=== PATIENT | male | born 1955 | race Caucasian/White ===

== ENCOUNTER → 2016-11-08 | Outpatient (CLI) | payer OTHER ==
[2014-09-14 12:05] VITALS: BP 137/84
[~2016-11-08] MED LIST: CARV25TA2 PO; FURO80TA3 PO; LEVO200T PO; LISI10TA2 PO; TEST5POW3 MC; WARF2.5T71 PO
== END | disposition home or self-care (01) ==
LOC: PCVCIMAG 08:29
PROVIDERS: ATTEND Internal Medicine
DX: I25.5 Ischemic cardiomyopathy (principal); I48.91 Unspecified atrial fibrillation; I08.0 Rheumatic disorders of both mitral and aortic valves; Z95.0 Presence of cardiac pacemaker
CPT/HCPCS: 80061; 85610; 93005; 93306

== ENCOUNTER → 2018-09-23 | Outpatient (CLI) | payer OTHER ==
[2014-09-14 12:05] VITALS: BP 137/84
--- NOTE | 2018-09-23 11:00 | PCVCIMAG ---
APPROVED REPORT Study performed: 09/23/2018 10:17:23 EXAM: Comprehensive 2D, Doppler, and color-flow Echocardiogram Patient Location: Echo lab Status: routine BSA: 2.46 HR: 87 bpmBP: 90/70 mmHg Rhythm: Pacemaker Other Information Study Quality: Technically Difficult Risk Factors: Cardiac Risk Factors: HTN, Hyperlipidemia Indications Atrial Fibrillation Pacemaker Cardiomyopathy Hypertension/HDD 2D Dimensions IVSd: 31.86 (7-11mm)LVOT Diam: 29.19 (18-24mm) LVDd: 68.61 mm LVPWs: 33.72 mm PWd: 12.63 (7-11mm)Ascending Ao: 35.02 (22-36mm) LVDs: 58.53 (25-40mm) Left Atrium: 71.87 (27-40mm) Aortic Root: 34.61 mm LV Single Plane 4CH: 34.85 % LV Single Plane 2CH: 32.26 % Biplane EF: 34.8 % Volumes Left Atrial Volume (Systole) Single Plane 4CH: 178.52 mLSingle Plane 2CH: 150.39 mL LA ESV Index: 68.00 mL/m2 Aortic Valve AoV Peak Rony.: 1.09 m/s AO Peak Gr.: 6.59 mmHgLVOT Max P.13 mmHg LVOT Max V: 0.51 m/s DYLAN Vmax: 3.15 cm2 Mitral Valve E/A Ratio: 0.9 MV Decel. Time: 474.70 ms MV E Max Rony.: 0.52 m/s MV A Rony.: 0.57 m/s Pulmonary Valve PV Peak Gr.: 1.00 mmHg Left Ventricle Left ventricle is mildly dilated. There is global hypokinesis of the left ventricle. There is normal left ventricular wall thickness. Left ventricular systolic function is moderate to severely decreased. LVEF is 30-35%. This study is not technically sufficient to allow evaluation of the LV diastolic function due to atrial fibrillation. Right Ventricle The right ventricle is normal size. The right ventricular systolic function is normal. Atria Left atrium is severely dilated. Right atrium is severely dilated. A pacemaker is seen in the right atrium consistent with history. Aortic Valve The aortic valve is normal in structure, trileaflet No aortic regurgitation is present. There is no aortic valvular stenosis. Mitral Valve The mitral valve is normal in structure. Mild mitral regurgitation. No evidence of mitral valve stenosis. Tricuspid Valve The tricuspid valve is normal in structure. There is no tricuspid valve regurgitation noted. Pulmonic Valve The pulmonary valve is normal in structure. There is no pulmonic valvular regurgitation. Great Vessels The aortic root is normal in size. IVC is normal in size and collapses >50% with inspiration. Pericardium There is no pericardial effusion. <Conclusion> Left ventricular systolic function is moderate to severely decreased. There is global hypokinesis of the left ventricle. LVEF is 30-35%. Both atria are severely dilated. The aortic valve is normal in structure, trileaflet. No aortic regurgitation or stenosis. The mitral valve is normal in structure. Mild mitral regurgitation. Pulmonary artery pressure could not be reliably ascertained There is no pericardial effusion.
== END | disposition home or self-care (01) ==
LOC: PCVCIMAG 08:00
PROVIDERS: ATTEND Internal Medicine
DX: I34.0 Nonrheumatic mitral (valve) insufficiency (principal); I48.2 Chronic atrial fibrillation; I42.7 Cardiomyopathy due to drug and external agent; I50.22 Chronic systolic (congestive) heart failure
CPT/HCPCS: 93306

== ENCOUNTER → 2019-04-09 | Outpatient (CLI) | payer OTHER ==
[2014-09-14 12:05] VITALS: BP 137/84
== END | disposition home or self-care (01) ==
LOC: PCVCCLINIC 11:00
PROVIDERS: ATTEND Internal Medicine
DX: I11.0 Hypertensive heart disease with heart failure (principal); I50.22 Chronic systolic (congestive) heart failure; I42.7 Cardiomyopathy due to drug and external agent; I48.21 Permanent atrial fibrillation; R94.31 Abnormal electrocardiogram [ECG] [EKG]; E78.5 Hyperlipidemia, unspecified; Z95.0 Presence of cardiac pacemaker; Z90.49 Acquired absence of other specified parts of digestive tract; Z90.09 Acquired absence of other part of head and neck; Z87.891 Personal history of nicotine dependence; Z79.01 Long term (current) use of anticoagulants; Z79.899 Other long term (current) drug therapy; Z72.89 Other problems related to lifestyle; Z88.5 Allergy status to narcotic agent; Z88.8 Allergy status to other drugs, medicaments and biological substances
CPT/HCPCS: 36415; 80061; 85610; 93005; 93284; G0463

== ENCOUNTER 2021-09-09 12:23 | Inpatient (IN) | payer MEDICARE, OTHER ==
[~2021-09-09] VITALS: Ht 170.2 cm; Wt 123.2 kg
[~2021-09-09 12:23] MED LIST changes: +LISI10TA16 PO; -LISI10TA2 PO
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
[2021-09-09 12:55] LABS: BASO # 0.1 x10^3/uL (0.0-0.2); BASO % 1 % (0-3); EOS % 1 % (0-3); HEMATOCRIT 47.4 % (39.0-53.0); HEMOGLOBIN 15.3 g/dL (13.0-17.5); LYMPH # 1.3 x10^3/uL (1.0-4.8); LYMPH % 23 % (24-48); MEAN CORPUSCULAR HEMOGLOBIN 35 pg (25-35); MEAN CORPUSCULAR HGB CONC 32 g/dL (31-37); MEAN CORPUSCULAR VOLUME 107 fL (79-100); MONO # 0.6 x10^3/uL (0.0-1.1); MONO % 11 % (0-9); NEUT # 3.8 x10^3/uL (1.8-7.7); NEUT % 65 % (31-73); PLATELET COUNT 127 x10^3/uL (140-400); RED BLOOD COUNT 4.41 x10^6/uL (4.30-5.70); RED CELL DISTRIBUTION WIDTH 17.9 % (11.5-14.5); WHITE BLOOD COUNT 5.8 x10^3/uL (4.0-11.0)
[2021-09-09 13:08] LABS: PROTHROMBIN TIME PATIENT 18.8 SEC (11.7-14.0)
[2021-09-09 13:09] LABS: CALCIUM 10.6 mg/dL (8.5-10.1); GFR 33.6; POTASSIUM 3.4 mmol/L (3.5-5.1)
[2021-09-09 13:16] LABS: ALBUMIN 3.8 g/dL (3.4-5.0); ALBUMIN/GLOBULIN RATIO 1.1 (1.0-1.7); MAGNESIUM 2.4 mg/dL (1.8-2.4); PHOSPHORUS 3.8 mg/dL (2.6-4.7); TOTAL BILIRUBIN 4.5 mg/dL (0.2-1.0); TOTAL PROTEIN 7.2 g/dL (6.4-8.2)
--- NOTE | 2021-09-09 13:31 | RAD ---
CT HEAD/BRAIN WO Date: 09/09/2021 1:05 PM Clinical Indication: AMS, weakness Comparison: None. Technique: 5 mm axial tomographic images were obtained of the head without contrast. These were view ed on brain and bone windows. One or more of the following dose reduction techniques were utilized: A utomated exposure control (AEC), Adjustment of mA and/or kV according to patient size, Use of iterati ve reconstruction technique such as ASiR, CT scan done according to ALARA and image gently/image willis ly Findings: Mild generalized cerebral and cerebellar volume loss. Mild nonspecific periventricular hypoattenuatio n, most commonly seen with chronic small vessel ischemic disease. Calcified atherosclerosis of the bi lateral cavernous and paraclinoid internal carotid arteries and intracranial vertebral arteries. No intra- or extra-axial mass or fluid collection. No acute hemorrhage. The ventricles are normal in size, shape, and morphology. The cook-white matter junction is normal. The subarachnoid cisterns are patent. The visualized paranasal sinuses are normal. The visualized portions of the orbits and globes are no rmal. The mastoid air cells are clear. The senior electrical project manager topogram shows no lytic lesion or fracture. Impression: No acute intracranial process. Mild cerebral volume loss. Mild chronic small vessel ischemic disease. Electronically signed by: Jackson Peterson MD (09/09/2021 1:29 PM) [id number]
--- NOTE | 2021-09-09 14:09 | RAD ---
XR CHEST 1V INDICATION: dyspnea, hypoxia COMPARISON STUDY: 09/14/2014. FINDINGS: Right pectoral transvenous dual-chamber biventricular ICD/pacemaker. Lungs: Normal lung volume. No consolidation. Pleura: No pleural effusion or pneumothorax. Heart and Mediastinum: Cardiomegaly. The great vessels of the thorax are normal. IMPRESSION: No consolidation. Electronically signed by: Jackson Peterson MD (09/09/2021 2:07 PM) [id number]
[2021-09-09] MEDS ORDERED: IV NORMAL SALINE 500ML BAG 500 ML IV ONE (14:45)
--- NOTE | 2021-09-09 15:30 | RAD ---
Examination: CT chest abdomen pelvis without contrast HISTORY: History of dyspnea, abdominal pain, jaundice COMPARISON: None available Technique: Axial CT images of chest abdomen pelvis are performed without contrast.. Coronal and sagit joya reformats are performed. Exposure: One or more of the following individualized dose reduction techniques were utilized for thi s examination: 1. Automated exposure control 2. Adjustment of the mA and/or kV according to patient size 3. Use of iterative reconstruction technique FINDINGS: The central airways are patent. Mild cardiomegaly. Mild aortic atherosclerosis. Minimal bibasilar pinky g atelectasis. No radiologically significant mediastinal lymphadenopathy. The visualized noncontraste d liver, adrenals grossly appears unremarkable. The spleen is not identified. Mild distended gallblad faye. The [id number]-[id number] surrounding fat stranding about the gallbladder. The stomach is mildly dist ended. The visualized pancreas grossly appears unremarkable. The small bowel is nondilated. Feces and gas noted in the colon. Moderate inflammatory fat stranding identified about the urinary bladder along the bilateral ureters and bilateral kidneys. Multiple intrarenal collecting system calculi identified in the left kidney wi th largest measuring 9 mm left kidney. Multiple cystic structures identified in the bilateral kidneys with the largest measuring 4.3 cm in the right kidney. Moderate degenerative changes thoracic and shantell mbar spine. Mild compression changes of T12 vertebral body IMPRESSION: 1. Moderate inflammatory fat stranding identified about the urinary bladder along the bilateral uret ers and bilateral kidneys could be due to cystitis or urinary tract infection. Correlate with lab maxim ues. 2. Multiple intrarenal collecting system calculus identified in the left kidney with largest measuri ng 9 mm left kidney. 3. Multiple cystic structures identified in the bilateral kidneys with the largest measuring 4.3 cm in the right kidney. Follow-up nonemergent ultrasound kidneys can be considered. 4. Mild distended gallbladder with [id number] surrounding fat stranding. Acute cholecystitis i s not excluded. Recommend ultrasound right upper quadrant. 5. Mild compression changes of T12 vertebral body. Electronically signed by: Sloan Allen MD (09/09/2021 3:28 PM) [id number]
[2021-09-09 15:43] LABS: BASE EXCESS ABG -6 mmol/L (-3-3); HCO3 ABG 18 mmol/L (21-28); PCO2 ABG 31 mmHg (35-46); PO2 ABG 85 mmHg (65-108); SAT O2 ABG 95 % (92-99)
[2021-09-09 15:44] LABS: FIO2 ABG ROOM AIR
[2021-09-09] MEDS ORDERED: POTASSIUM CHLORIDE 10 MEQ TABLET.ER. PO ONE (15:45)
[2021-09-09] MEDS ORDERED: FUROSEMIDE 20 MG/2 ML VIAL. IVP ONE (15:45)
[2021-09-09] MEDS ORDERED: PIPERACILLIN/TAZOBACTAM 3.375 GM in IV NORMAL SALINE 50ML 50 ML IV ONE (16:00)
[2021-09-09 17:22] LABS: AMPHETAMINE/METHAMPHETAMINE NEG (NEG); BARBITURATES NEG (NEG); BENZODIAZEPINES NEG (NEG); CANNABINOIDS POS (NEG); COCAINE NEG (NEG); METHADONE NEG (NEG); OPIATES NEG (NEG); PHENCYCLIDINE NEG (NEG)
[2021-09-09 17:32] LABS: HYALINE CASTS, URINE FEW /HPF
[2021-09-09 17:33] LABS: BACTERIA,URINE 0 /HPF (0-FEW)
--- NOTE | 2021-09-09 18:06 | PDOC1 ---
History and Physical Date of Admission Date of Admission DATE: 09/09/21 TIME: 17:38 Identification/Chief Complaint Chief Complaint Generalized weakness, confusion Source Source: Caregiver, Patient History of Present Illness History of Present Illness Patient is a 66-year-old man with past medical history A. fib on warfarin, CHF, depression, gout, presents to the ED at the behest of his brother. Family's immediate concern is patient's generalized weakness and confusion over the past several days. Mother states that he is noncompliant with his diet, but has been compliant with his medications to his knowledge. Patient lives at home alone, but family comes to check on him frequently. As of late they have noticed him more confused, with statements like "who is blues dog is this". I tried to get an appointment with a doctor as outpatient, but due to lack of appointments family brought him to the ER instead. Labs on admission showed MCV 107, BUN 31, creatinine 2.0, CBG 122, AST 47, ALT 52, alkaline phosphatase 121. Urine toxicology was positive for cannabis. Urinalysis negative for any signs of infection. CT abdomen did demonstrate moderate inflammatory fat stranding identified about the urinary bladder along the bilateral ureters and bilateral kidneys could be due to cystitis or urinary tract infection, the patient is without urinary symptoms and with negative UA. CT abdomen also demonstrated multiple intrarenal collecting system calculus identified in the left kidney with largest measuring 9 mm left kidney, mild distended gallbladder with [id number] surrounding fat stranding. Acute cholecystitis was a concern per radiology, but patient denies any abdominal pain. The main focus seems to be weakness and confusion. Patient has been admitted for further medical management. Past Medical History Past Medical History A. fib, CHF, depression, gout Past Surgical History Past Surgical History Exploratory laparotomy Family History Family History Cirrhosis Social History Smoke: No ALCOHOL: occassional Drugs: Marijuana Current Problem List Problem List Problems Medical Problems: (1) Acute renal failure Status: Acute (2) Acute respiratory failure with hypoxia Status: Acute (3) Cholecystitis Status: Acute (4) Congestive heart failure Status: Acute (5) Hyperbilirubinemia Status: Acute (6) Jaundice Status: Acute (7) Lactic acidosis Status: Acute Current Medications Current Medications Current Medications Sodium Chloride 500 ml @ 500 mls/hr 1X ONCE IV Last administered on 09/09/21at 14:47; Start 09/09/21 at 14:45; Stop 09/09/21 at 15:44; Status DC Furosemide (Lasix) 20 mg 1X ONCE IVP Last administered on 09/09/21at 15:53; Start 09/09/21 at 15:45; Stop 09/09/21 at 15:46; Status DC Potassium Chloride (Klor-Con) 10 meq 1X ONCE PO Last administered on 09/09/21at 15:51; Start 09/09/21 at 15:45; Stop 09/09/21 at 15:46; Status DC Piperacillin Sod/ Tazobactam Sod 3.375 gm/Sodium Chloride 50 ml @ 100 mls/hr 1X ONCE IV Last administered on 09/09/21at 16:34; Start 09/09/21 at 16:00; Stop 09/09/21 at 16:29; Status DC Active Scripts Active Reported Testosterone 5 Gm Powder 5 Gm MC Furosemide 80 Mg Tablet 80 Mg PO DAILY Synthroid (Levothyroxine Sodium) 200 Mcg Tablet 200 Mcg PO DAILYAC Carvedilol 25 Mg Tablet 25 Mg PO BIDWMEALS Lisinopril 10 Mg Tablet 10 Mg PO DAILY Warfarin Sodium 2.5 Mg Tablet 2.5 Mg PO DAILY Allergies Allergies: Coded Allergies: No Known Drug Allergies (Unverified , 09/14/14) ROS Review of System GENERAL: Generalized weakness. Denies fevers SKIN: No bruising, hair changes or rashes. EYES: No blurred, double or loss of vision. NOSE AND THROAT: No history of nosebleeds, hoarseness or sore throat. HEART: Denies chest pain, denies palpitations. LUNGS: Denies cough, hemoptysis, wheezing or shortness of breath. GASTROINTESTINAL: Denies nausea, vomiting, abdominal pain. GENITOURINARY: Denies dysuria, frequency, urgency, hematuria. NEUROLOGIC: Confusion. Denies history of numbness, tingling, tremor or weakness. PSYCHIATRIC: Denies anxiety, denies depression. ENDOCRINE: No history of heat or cold intolerance, polyuria or polydipsia. EXTREMITIES: Bilateral lower extremity musculoskeletal weakness. Denies joint pain, pain on walking or stiffness. Physical Exam Physical Exam General: Alert, Oriented X2, Cooperative, No acute distress. Morbidly obese. HEENT: PERRLA, EOMI Lungs: Decreased breath sounds bilaterally, Normal air movement Heart: RRR, no murmurs Cardiovascular: S1, S2 Abdomen: Obese. Normal bowel sounds, Soft, No right upper quadrant tenderness or abdominal tenderness anywhere. Midline exploratory laparotomy scar. Extremities: 2+ edema. No clubbing, No cyanosis Skin: Jaundiced appearing skin. No rashes, No significant lesion Neuro: Normal speech, Normal tone, Sensation intact Psych/Mental Status: Mental status NL, Mood NL. Only slightly confused. Vitals Vitals Vital Signs Date Time Temp Pulse Resp B/P (MAP) Pulse Ox O2 Delivery O2 Flow Rate FiO2 09/09/21 17:01 78 38 151/119 (130) 09/09/21 12:25 97.3 88 Room Air 97.3 Labs Labs Laboratory Tests Test 09/09/21 12:40 09/09/21 12:42 09/09/21 16:05 09/09/21 16:50 White Blood Count 5.8 x10^3/uL (4.0-11.0) Red Blood Count 4.41 x10^6/uL (4.30-5.70) Hemoglobin 15.3 g/dL (13.0-17.5) Hematocrit 47.4 % (39.0-53.0) Mean Corpuscular Volume 107 fL (79-100) Mean Corpuscular Hemoglobin 35 pg (25-35) Mean Corpuscular Hemoglobin Concent 32 g/dL (31-37) Red Cell Distribution Width 17.9 % (11.5-14.5) Platelet Count 127 x10^3/uL (140-400) Neutrophils (%) (Auto) 65 % (31-73) Lymphocytes (%) (Auto) 23 % (24-48) Monocytes (%) (Auto) 11 % (0-9) Eosinophils (%) (Auto) 1 % (0-3) Basophils (%) (Auto) 1 % (0-3) Neutrophils # (Auto) 3.8 x10^3/uL (1.8-7.7) Lymphocytes # (Auto) 1.3 x10^3/uL (1.0-4.8) Monocytes # (Auto) 0.6 x10^3/uL (0.0-1.1) Eosinophils # (Auto) 0.0 x10^3/uL (0.0-0.7) Basophils # (Auto) 0.1 x10^3/uL (0.0-0.2) Prothrombin Time 18.8 SEC (11.7-14.0) Prothromb Time International Ratio 1.6 (0.8-1.1) Activated Partial Thromboplast Time 35 SEC (24-38) Sodium Level 143 mmol/L (136-145) Potassium Level 3.4 mmol/L (3.5-5.1) Chloride Level 103 mmol/L (98-107) Carbon Dioxide Level 26 mmol/L (21-32) Anion Gap 14 (6-14) Blood Urea Nitrogen 31 mg/dL (8-26) Creatinine 2.0 mg/dL (0.7-1.3) Estimated GFR (Cockcroft-Gault) 33.6 BUN/Creatinine Ratio 16 (6-20) Glucose Level 122 mg/dL (70-99) Lactic Acid Level 3.7 mmol/L (0.4-2.0) 2.8 mmol/L (0.4-2.0) Calcium Level 10.6 mg/dL (8.5-10.1) Phosphorus Level 3.8 mg/dL (2.6-4.7) Magnesium Level 2.4 mg/dL (1.8-2.4) Total Bilirubin 4.5 mg/dL (0.2-1.0) Aspartate Amino Transf (AST/SGOT) 47 U/L (15-37) Alanine Aminotransferase (ALT/SGPT) 52 U/L (16-63) Alkaline Phosphatase 121 U/L (46-116) Ammonia 20 mcmol/L (11-34) Creatine Kinase 147 U/L (39-308) Troponin I High Sensitivity 54 ng/L (4-75) BW-Xch-L-Type Natriuretic Peptide 9514 pg/mL (0-124) Total Protein 7.2 g/dL (6.4-8.2) Albumin 3.8 g/dL (3.4-5.0) Albumin/Globulin Ratio 1.1 (1.0-1.7) Lipase 29 U/L (73-393) Ethyl Alcohol Level < 10 mg/dL (0-10) O2 Saturation 95 % (92-99) Arterial Blood pH 7.38 (7.35-7.45) Arterial Blood pCO2 at Patient Temp 31 mmHg (35-46) Arterial Blood pO2 at Patient Temp 85 mmHg (65-108) Arterial Blood HCO3 18 mmol/L (21-28) Arterial Blood Base Excess -6 mmol/L (-3-3) FiO2 Room air Urine Collection Type Unknown Urine Color (Auto) Light yellow Urine Turbidity Clear Urine pH (Auto) 5.5 (<5.0-8.0) Urine Specific [place] 1.009 (1.000-1.030) Urine Protein (Auto) Negative mg/dL (Negative) Urine Glucose (Auto)(UA) Negative mg/dL (Negative) Urine Ketones (Auto) Negative mg/dL (Negative) Urine Blood (Auto) Negative (Negative) Urine Nitrite Negative (Negative) Urine Bilirubin (Auto) Negative (Negative) Urine Urobilinogen (Auto) Normal mg/dL (Normal) Urine Leukocyte Esterase (Auto) Negative (Negative) Urine RBC 1-2 /HPF (0-2) Urine WBC 1-4 /HPF (0-4) Urine Bacteria 0 /HPF (0-FEW) Urine Hyaline Casts Few /HPF Urine Mucus Marked /LPF Urine Opiates Screen Neg (NEG) Urine Methadone Screen Neg (NEG) Urine Barbiturates Neg (NEG) Urine Phencyclidine Screen Neg (NEG) Urine Amphetamine/Methamphetamine Neg (NEG) Urine Benzodiazepines Screen Neg (NEG) Urine Cocaine Screen Neg (NEG) Urine Cannabinoids Screen Pos (NEG) Urine Ethyl Alcohol Neg (NEG) Laboratory Tests Test 09/09/21 12:40 09/09/21 12:42 09/09/21 16:05 09/09/21 16:50 White Blood Count 5.8 x10^3/uL (4.0-11.0) Red Blood Count 4.41 x10^6/uL (4.30-5.70) Hemoglobin 15.3 g/dL (13.0-17.5) Hematocrit 47.4 % (39.0-53.0) Mean Corpuscular Volume 107 fL (79-100) Mean Corpuscular Hemoglobin 35 pg (25-35) Mean Corpuscular Hemoglobin Concent 32 g/dL (31-37) Red Cell Distribution Width 17.9 % (11.5-14.5) Platelet Count 127 x10^3/uL (140-400) Neutrophils (%) (Auto) 65 % (31-73) Lymphocytes (%) (Auto) 23 % (24-48) Monocytes (%) (Auto) 11 % (0-9) Eosinophils (%) (Auto) 1 % (0-3) Basophils (%) (Auto) 1 % (0-3) Neutrophils # (Auto) 3.8 x10^3/uL (1.8-7.7) Lymphocytes # (Auto) 1.3 x10^3/uL (1.0-4.8) Monocytes # (Auto) 0.6 x10^3/uL (0.0-1.1) Eosinophils # (Auto) 0.0 x10^3/uL (0.0-0.7) Basophils # (Auto) 0.1 x10^3/uL (0.0-0.2) Prothrombin Time 18.8 SEC (11.7-14.0) Prothromb Time International Ratio 1.6 (0.8-1.1) Activated Partial Thromboplast Time 35 SEC (24-38) Sodium Level 143 mmol/L (136-145) Potassium Level 3.4 mmol/L (3.5-5.1) Chloride Level 103 mmol/L (98-107) Carbon Dioxide Level 26 mmol/L (21-32) Anion Gap 14 (6-14) Blood Urea Nitrogen 31 mg/dL (8-26) Creatinine 2.0 mg/dL (0.7-1.3) Estimated GFR (Cockcroft-Gault) 33.6 BUN/Creatinine Ratio 16 (6-20) Glucose Level 122 mg/dL (70-99) Lactic Acid Level 3.7 mmol/L (0.4-2.0) 2.8 mmol/L (0.4-2.0) Calcium Level 10.6 mg/dL (8.5-10.1) Phosphorus Level 3.8 mg/dL (2.6-4.7) Magnesium Level 2.4 mg/dL (1.8-2.4) Total Bilirubin 4.5 mg/dL (0.2-1.0) Aspartate Amino Transf (AST/SGOT) 47 U/L (15-37) Alanine Aminotransferase (ALT/SGPT) 52 U/L (16-63) Alkaline Phosphatase 121 U/L (46-116) Ammonia 20 mcmol/L (11-34) Creatine Kinase 147 U/L (39-308) Troponin I High Sensitivity 54 ng/L (4-75) LK-Vsy-V-Type Natriuretic Peptide 9514 pg/mL (0-124) Total Protein 7.2 g/dL (6.4-8.2) Albumin 3.8 g/dL (3.4-5.0) Albumin/Globulin Ratio 1.1 (1.0-1.7) Lipase 29 U/L (73-393) Ethyl Alcohol Level < 10 mg/dL (0-10) O2 Saturation 95 % (92-99) Arterial Blood pH 7.38 (7.35-7.45) Arterial Blood pCO2 at Patient Temp 31 mmHg (35-46) Arterial Blood pO2 at Patient Temp 85 mmHg (65-108) Arterial Blood HCO3 18 mmol/L (21-28) Arterial Blood Base Excess -6 mmol/L (-3-3) FiO2 Room air Urine Collection Type Unknown Urine Color (Auto) Light yellow Urine Turbidity Clear Urine pH (Auto) 5.5 (<5.0-8.0) Urine Specific [place] 1.009 (1.000-1.030) Urine Protein (Auto) Negative mg/dL (Negative) Urine Glucose (Auto)(UA) Negative mg/dL (Negative) Urine Ketones (Auto) Negative mg/dL (Negative) Urine Blood (Auto) Negative (Negative) Urine Nitrite Negative (Negative) Urine Bilirubin (Auto) Negative (Negative) Urine Urobilinogen (Auto) Normal mg/dL (Normal) Urine Leukocyte Esterase (Auto) Negative (Negative) Urine RBC 1-2 /HPF (0-2) Urine WBC 1-4 /HPF (0-4) Urine Bacteria 0 /HPF (0-FEW) Urine Hyaline Casts Few /HPF Urine Mucus Marked /LPF Urine Opiates Screen Neg (NEG) Urine Methadone Screen Neg (NEG) Urine Barbiturates Neg (NEG) Urine Phencyclidine Screen Neg (NEG) Urine Amphetamine/Methamphetamine Neg (NEG) Urine Benzodiazepines Screen Neg (NEG) Urine Cocaine Screen Neg (NEG) Urine Cannabinoids Screen Pos (NEG) Urine Ethyl Alcohol Neg (NEG) Images Images PATIENT: TONIA BACA MACCOUNT: [id number] : 1955 LOCATION: ER AGE: 66 SEX: M EXAM STATUS: REG ER ORD. PHYSICIAN: CHICHI BURK DO REASON: dyspnea, abd pain, jaundice, hyperbilirubinemia PROCEDURE: CT CHEST ABDOMEN PELVIS WO Examination: CT chest abdomen pelvis without contrast HISTORY: History of dyspnea, abdominal pain, jaundice COMPARISON: None available Technique: Axial CT images of chest abdomen pelvis are performed without contrast.. Coronal and sagittal reformats are performed. Exposure: One or more of the following individualized dose reduction techniques were utilized for this examination: 1. Automated exposure control 2. Adjustment of the mA and/or kV according to patient size 3. Use of iterative reconstruction technique FINDINGS: The central airways are patent. Mild cardiomegaly. Mild aortic atherosclerosis. Minimal bibasilar lung atelectasis. No radiologically significant mediastinal lymphadenopathy. The visualized noncontrasted liver, adrenals grossly appears unremarkable. The spleen is not identified. Mild distended gallbladder. The ktev-kx-hhcewoqg surrounding fat stranding about the gallbladder. The stomach is mildly distended. The visualized pancreas grossly appears unremarkable. The small bowel is nondilated. Feces and gas noted in the colon. Moderate inflammatory fat stranding identified about the urinary bladder along the bilateral ureters and bilateral kidneys. Multiple intrarenal collecting system calculi identified in the left kidney with largest measuring 9 mm left kidney. Multiple cystic structures identified in the bilateral kidneys with the largest measuring 4.3 cm in the right kidney. Moderate degenerative changes thoracic and lumbar spine. Mild compression changes of T12 vertebral body IMPRESSION: 1. Moderate inflammatory fat stranding identified about the urinary bladder along the bilateral ureters and bilateral kidneys could be due to cystitis or urinary tract infection. Correlate with lab values. 2. Multiple intrarenal collecting system calculus identified in the left kidney with largest measuring 9 mm left kidney. 3. Multiple cystic structures identified in the bilateral kidneys with the largest measuring 4.3 cm in the right kidney. Follow-up nonemergent ultrasound kidneys can be considered. 4. Mild distended gallbladder with ewpo-dt-rumaryhl surrounding fat stranding. Acute cholecystitis is not excluded. Recommend ultrasound right upper quadrant. 5. Mild compression changes of T12 vertebral body. PATIENT: TONIA BACA MACCOUNT: [id number] : 1955 LOCATION: ER AGE: 66 SEX: M EXAM STATUS: REG ER ORD. PHYSICIAN: CHICHI BURK DO REASON: AMS, weakness PROCEDURE: CT HEAD WO CONTRAST CT HEAD/BRAIN WO Date: 09/09/2021 1:05 PM Clinical Indication: AMS, weakness Comparison: None. Technique: 5 mm axial tomographic images were obtained of the head without contrast. These were viewed on brain and bone windows. One or more of the following dose reduction techniques were utilized: Automated exposure control (AEC), Adjustment of mA and/or kV according to patient size, Use of iterative reconstruction technique such as ASiR, CT scan done according to ALARA and image gently/image wisely Findings: Mild generalized cerebral and cerebellar volume loss. Mild nonspecific periventricular hypoattenuation, most commonly seen with chronic small vessel i schemic disease. Calcified atherosclerosis of the bilateral cavernous and paraclinoid internal carotid arteries and intracranial vertebral arteries. No intra- or extra-axial mass or fluid collection. No acute hemorrhage. The ventricles are normal in size, shape, and morphology. The cook-white matter junction is normal. The subarachnoid cisterns are patent. The visualized paranasal sinuses are normal. The visualized portions of the orbits and globes are normal. The mastoid air cells are clear. The label tacker topogram shows no lytic lesion or fracture. Impression: No acute intracranial process. Mild cerebral volume loss. Mild chronic small vessel ischemic disease. PATIENT: TONIA BACA MACCOUNT: [id number] : 1955 LOCATION: ER AGE: 66 SEX: M EXAM STATUS: REG ER ORD. PHYSICIAN: CHICHI BURK DO REASON: dyspnea, hypoxia PROCEDURE: PORTABLE CHEST 1V XR CHEST 1V INDICATION: dyspnea, hypoxia COMPARISON STUDY: 09/14/2014. FINDINGS: Right pectoral transvenous dual-chamber biventricular ICD/pacemaker. Lungs: Normal lung volume. No consolidation. Pleura: No pleural effusion or pneumothorax. Heart and Mediastinum: Cardiomegaly. The great vessels of the thorax are normal. IMPRESSION: No consolidation. VTE Prophylaxis Ordered VTE Prophylaxis Devices: No VTE Pharmacological Prophylaxi: Yes Assessment/Plan Assessment/Plan Generalized weakness Acute confusion Failure to thrive [place] Plan: We will place consult to nephrology due to AMERICA Last ER visit on 09/14/2014 BUN 18 and creatinine 1.4. Patient's confusion may be secondary to his uremia. Will provide gentle hydration. We will obtain echocardiogram and consult cardiology due to his likely heart failure as etiology of weakness. Liver enzymes are not terribly elevated. Will monitor. No signs of infection in urine. Patient denies pain from kidney stones or any flank pain. If no improvement with conservative measures, will place consult to neurology. PT/OT Resume medications FEN - Cardiac diet PPX - warfarin FULL CODE/patient surrogate decision-maker is his brother (Gerald Baca) Dispo - inpatient for above Justifications for Admission Other Justification TOMASZ WING MD Sep 09, 2021 18:06
[2021-09-09] MEDS ORDERED: CALCIUM CARBONATE 500 MG TAB.CHEW PO PRN (18:30)
[2021-09-09] MEDS ORDERED: ZOLPIDEM 5 MG TABLET. PO PRN (18:30)
[2021-09-09] MEDS ORDERED: HYDROcodone/APAP 5/325MG 1 TAB TABLET PO PRN (18:30)
[2021-09-09] MEDS ORDERED: ACETAMINOPHEN 325 MG TABLET. PO PRN (18:30)
[2021-09-09] MEDS ORDERED: MAGNESIUM HYDROXIDE 2,400 MG/30 ML ORAL.SUSP. PO PRN (18:30)
[2021-09-09] MEDS ORDERED: MAG HYDROX/ALUMINUM HYD/SIMETH 30 ML ORAL.SUSP PO PRN (18:30)
[2021-09-09] MEDS ORDERED: ONDANSETRON PF 4 MG/2 ML VIAL. IVP PRN (18:30)
--- NOTE | 2021-09-09 18:37 | NUR ---
Pharmacy Warfarin Dosing Note S:Pharmacy consulted to assist with anticoagulation therapy started with target INR: 2 -3 O:TONIA CAMP is a 66 year old M with Atrial Fibrillation LABS: Last INR: 1.6 Last HGB: 15.3 Last HCT: 47.7 Last PLT: 127 Last dose of 2.5 mg given on at Previous Regimen: Vitamin K given: Drug Interaction Changes: Ongoing Drug Interactions: A:INR of 1.6 is below desired range. Target range for this patient is: 2 -3 P: Warfarin dose: 4 mg Now Bridge Therapy: Next INR due IN AM Pharmacy anticoagulation service will continue to follow. VIRGIL TAMAYO [facility], 09/09/21 [id number]
[2021-09-09] MEDS: CARVEDILOL 12.5 MG TABLET. PO SCH (18:48)
[2021-09-09] MEDS ORDERED: WARFARIN 4 MG TABLET. PO ONE (19:00)
[2021-09-09 19:47] VITALS: BP 102/88
--- NOTE | 2021-09-09 19:55 | NUR ---
Pt in bed assessment completed vss pt alert and oriented x2 pt forgetful pt denied pain at this time call light in reach will resume care and continue to monitor pt bed alarm set.
[2021-09-09 23:05] VITALS: BP 130/89
[2021-09-10 03:01] VITALS: BP 129/81
[2021-09-10 03:32] LABS: PROTHROMBIN TIME PATIENT 20.7 SEC (11.7-14.0)
[2021-09-10] MEDS ORDERED: LEVOTHYROXINE 100 MCG TABLET PO SCH (06:00)
[2021-09-10 07:00] VITALS: BP 121/79
[2021-09-10] MEDS: FUROSEMIDE 80 MG TABLET. PO SCH (08:41)
[2021-09-10] MEDS: CARVEDILOL 12.5 MG TABLET. PO SCH ×2 (08:42→16:57)
[2021-09-10] MEDS ORDERED: LISINOPRIL 10 MG TABLET PO SCH (09:00)
[2021-09-10] MEDS ORDERED: WARFARIN 2.5 MG TABLET. PO SCH (09:00)
--- NOTE | 2021-09-10 11:08 | PDOC2 ---
CONSULT Date of Consult Date of Consult DATE: 09/10/21 TIME: 11:07 Reason for Consult Reason for Consult: Congestive heart failure Referring Physician Referring Physician: Dr. Wyatt Identification/Chief Complaint Chief Complaint Shortness of breath Source Source: Chart review, Patient History of Present Illness Reason for Visit: 66-year-old male with history of nonischemic cardiomyopathy and chronic systolic heart failure s/p biventricular ICD implantation and atrial fibrillation on warfarin, usually followed by Dr. Salas at [facility] was brought by family for generalized weakness and confusion. Patient also complained of 2-week history of progressive shortness of breath. He denied any chest pain, palpitations or syncope. He admitted noncompliance with salt restrictions. According to family, he has not been taking his medications regularly as well. Past Medical History Past Medical History Hypertension Atrial fibrillation, most probably permanent Nonischemic cardiomyopathy Chronic systolic heart failure Depression Gout Past Surgical History Past Surgical History Biventricular ICD implantation 15 years ago with more recent generator change Exploratory laparotomy Social History No ALCOHOL: occassional Drugs: Marijuana Current Problem List Problem List Problems Medical Problems: (1) Acute renal failure Status: Acute (2) Acute respiratory failure with hypoxia Status: Acute (3) Cholecystitis Status: Acute (4) Congestive heart failure Status: Acute (5) Hyperbilirubinemia Status: Acute (6) Jaundice Status: Acute (7) Lactic acidosis Status: Acute Current Medications Current Medications Current Medications Sodium Chloride 500 ml @ 500 mls/hr 1X ONCE IV Last administered on 09/09/21at 14:47; Start 09/09/21 at 14:45; Stop 09/09/21 at 15:44; Status DC Furosemide (Lasix) 20 mg 1X ONCE IVP Last administered on 09/09/21at 15:53; Start 09/09/21 at 15:45; Stop 09/09/21 at 15:46; Status DC Potassium Chloride (Klor-Con) 10 meq 1X ONCE PO Last administered on 09/09/21at 15:51; Start 09/09/21 at 15:45; Stop 09/09/21 at 15:46; Status DC Piperacillin Sod/ Tazobactam Sod 3.375 gm/Sodium Chloride 50 ml @ 100 mls/hr 1X ONCE IV Last administered on 09/09/21at 16:34; Start 09/09/21 at 16:00; Stop 09/09/21 at 16:29; Status DC Furosemide (Lasix) 80 mg DAILY PO Last administered on 09/10/21at 08:41; Start 09/10/21 at 09:00 Lisinopril (Prinivil) 10 mg DAILY PO Last administered on 09/10/21at 08:41; Start 09/10/21 at 09:00 Warfarin Sodium (Coumadin) 2.5 mg DAILY PO ; Start 09/10/21 at 09:00; Stop 09/09/21 at 18:37; Status DC Carvedilol (Coreg) 25 mg BIDWMEALS PO Last administered on 09/10/21at 08:42; Start 09/09/21 at 19:00 Levothyroxine Sodium (Synthroid) 200 mcg DAILY06 PO Last administered on 09/10/21at 05:53; Start 09/10/21 at 06:00 Warfarin Sodium (Coumadin Per Pharmacy) 1 each PRN DAILY PRN MC SEE COMMENTS Last administered on 09/09/21at 18:38; Start 09/09/21 at 18:30 Ondansetron HCl (Zofran) 4 mg PRN Q6HRS PRN IVP NAUSEA/VOMITING; Start 09/09/21 at 18:30 Al Hydroxide/Mg Hydroxide (Mylanta Plus Xs) 30 ml PRN Q3HRS PRN PO HEARTBURN / GAS; Start 09/09/21 at 18:30 Calcium Carbonate/ Glycine (Tums) 500 mg PRN Q3HRS PRN PO UPSET STOMACH; Start 09/09/21 at 18:30 Zolpidem Tartrate (Ambien) 5 mg PRN QHS PRN PO INSOMNIA, MAY REPEAT IN 1HR; Start 09/09/21 at 18:30 Acetaminophen/ Hydrocodone Bitart (Lortab 5/325) 1 tab PRN Q4HRS PRN PO MILD PAIN 1-3; Start 09/09/21 at 18:30 Acetaminophen (Tylenol) 650 mg PRN Q6HRS PRN PO Headaches, Temp > 101.5F; Start 09/09/21 at 18:30 Magnesium Hydroxide (Milk Of Magnesia) 2,400 mg PRN Q12HR PRN PO CONSTIPATION; Start 09/09/21 at 18:30 Warfarin Sodium (Coumadin) 4 mg 1X WARF ONCE PO Last administered on 09/09/21at 18:49; Start 09/09/21 at 19:00; Stop 09/09/21 at 19:01; Status DC Active Scripts Active Reported Testosterone 5 Gm Powder 5 Gm MC Furosemide 80 Mg Tablet 80 Mg PO DAILY Synthroid (Levothyroxine Sodium) 200 Mcg Tablet 200 Mcg PO DAILYAC Carvedilol 25 Mg Tablet 25 Mg PO BIDWMEALS Lisinopril 10 Mg Tablet 10 Mg PO DAILY Warfarin Sodium 2.5 Mg Tablet 2.5 Mg PO DAILY Allergies Allergies: Coded Allergies: No Known Drug Allergies (Unverified , 09/14/14) ROS General: No: Fatigue PSYCHOLOGICAL ROS: YES: Disorientation, Memory difficulties Eyes: No Loss of vision HEENT: No: Epistaxis Respiratory: YES: Shortness of breath; No: Hemoptysis Cardiovascular: No Chest Pain, No Palpitations Genitourinary: No Hematuria Neurological: No Seizures Skin: No Rash Physical Exam General: Alert, No acute distress HEENT: Atraumatic Lungs: Other (Bilateral basal crepitations) Heart: No murmurs Abdomen: Soft Extremities: No edema Neuro: Normal speech Psych/Mental Status: Mood NL Vitals VITALS Vital Signs Date Time Temp Pulse Resp B/P (MAP) Pulse Ox O2 Delivery O2 Flow Rate FiO2 09/10/21 08:42 81 121/79 09/10/21 08:00 Nasal Cannula 4.0 09/10/21 07:00 97.4 20 98 97.4 Labs Labs Laboratory Tests Test 09/09/21 12:40 09/09/21 12:42 09/09/21 16:05 09/09/21 16:50 White Blood Count 5.8 x10^3/uL (4.0-11.0) Red Blood Count 4.41 x10^6/uL (4.30-5.70) Hemoglobin 15.3 g/dL (13.0-17.5) Hematocrit 47.4 % (39.0-53.0) Mean Corpuscular Volume 107 fL (79-100) Mean Corpuscular Hemoglobin 35 pg (25-35) Mean Corpuscular Hemoglobin Concent 32 g/dL (31-37) Red Cell Distribution Width 17.9 % (11.5-14.5) Platelet Count 127 x10^3/uL (140-400) Neutrophils (%) (Auto) 65 % (31-73) Lymphocytes (%) (Auto) 23 % (24-48) Monocytes (%) (Auto) 11 % (0-9) Eosinophils (%) (Auto) 1 % (0-3) Basophils (%) (Auto) 1 % (0-3) Neutrophils # (Auto) 3.8 x10^3/uL (1.8-7.7) Lymphocytes # (Auto) 1.3 x10^3/uL (1.0-4.8) Monocytes # (Auto) 0.6 x10^3/uL (0.0-1.1) Eosinophils # (Auto) 0.0 x10^3/uL (0.0-0.7) Basophils # (Auto) 0.1 x10^3/uL (0.0-0.2) Prothrombin Time 18.8 SEC (11.7-14.0) Prothromb Time International Ratio 1.6 (0.8-1.1) Activated Partial Thromboplast Time 35 SEC (24-38) Sodium Level 143 mmol/L (136-145) Potassium Level 3.4 mmol/L (3.5-5.1) Chloride Level 103 mmol/L (98-107) Carbon Dioxide Level 26 mmol/L (21-32) Anion Gap 14 (6-14) Blood Urea Nitrogen 31 mg/dL (8-26) Creatinine 2.0 mg/dL (0.7-1.3) Estimated GFR (Cockcroft-Gault) 33.6 BUN/Creatinine Ratio 16 (6-20) Glucose Level 122 mg/dL (70-99) Lactic Acid Level 3.7 mmol/L (0.4-2.0) 2.8 mmol/L (0.4-2.0) Calcium Level 10.6 mg/dL (8.5-10.1) Phosphorus Level 3.8 mg/dL (2.6-4.7) Magnesium Level 2.4 mg/dL (1.8-2.4) Total Bilirubin 4.5 mg/dL (0.2-1.0) Aspartate Amino Transf (AST/SGOT) 47 U/L (15-37) Alanine Aminotransferase (ALT/SGPT) 52 U/L (16-63) Alkaline Phosphatase 121 U/L (46-116) Ammonia 20 mcmol/L (11-34) Creatine Kinase 147 U/L (39-308) Troponin I High Sensitivity 54 ng/L (4-75) EQ-Khk-B-Type Natriuretic Peptide 9514 pg/mL (0-124) Total Protein 7.2 g/dL (6.4-8.2) Albumin 3.8 g/dL (3.4-5.0) Albumin/Globulin Ratio 1.1 (1.0-1.7) Lipase 29 U/L (73-393) Ethyl Alcohol Level < 10 mg/dL (0-10) O2 Saturation 95 % (92-99) Arterial Blood pH 7.38 (7.35-7.45) Arterial Blood pCO2 at Patient Temp 31 mmHg (35-46) Arterial Blood pO2 at Patient Temp 85 mmHg (65-108) Arterial Blood HCO3 18 mmol/L (21-28) Arterial Blood Base Excess -6 mmol/L (-3-3) FiO2 Room air Urine Collection Type Unknown Urine Color (Auto) Light yellow Urine Turbidity Clear Urine pH (Auto) 5.5 (<5.0-8.0) Urine Specific [place] 1.009 (1.000-1.030) Urine Protein (Auto) Negative mg/dL (Negative) Urine Glucose (Auto)(UA) Negative mg/dL (Negative) Urine Ketones (Auto) Negative mg/dL (Negative) Urine Blood (Auto) Negative (Negative) Urine Nitrite Negative (Negative) Urine Bilirubin (Auto) Negative (Negative) Urine Urobilinogen (Auto) Normal mg/dL (Normal) Urine Leukocyte Esterase (Auto) Negative (Negative) Urine RBC 1-2 /HPF (0-2) Urine WBC 1-4 /HPF (0-4) Urine Bacteria 0 /HPF (0-FEW) Urine Hyaline Casts Few /HPF Urine Mucus Marked /LPF Urine Opiates Screen Neg (NEG) Urine Methadone Screen Neg (NEG) Urine Barbiturates Neg (NEG) Urine Phencyclidine Screen Neg (NEG) Urine Amphetamine/Methamphetamine Neg (NEG) Urine Benzodiazepines Screen Neg (NEG) Urine Cocaine Screen Neg (NEG) Urine Cannabinoids Screen Pos (NEG) Urine Ethyl Alcohol Neg (NEG) Test 09/10/21 03:00 Prothrombin Time 20.7 SEC (11.7-14.0) Prothromb Time International Ratio 1.8 (0.8-1.1) Laboratory Tests Test 09/09/21 12:40 09/09/21 12:42 09/09/21 16:05 09/09/21 16:50 White Blood Count 5.8 x10^3/uL (4.0-11.0) Red Blood Count 4.41 x10^6/uL (4.30-5.70) Hemoglobin 15.3 g/dL (13.0-17.5) Hematocrit 47.4 % (39.0-53.0) Mean Corpuscular Volume 107 fL (79-100) Mean Corpuscular Hemoglobin 35 pg (25-35) Mean Corpuscular Hemoglobin Concent 32 g/dL (31-37) Red Cell Distribution Width 17.9 % (11.5-14.5) Platelet Count 127 x10^3/uL (140-400) Neutrophils (%) (Auto) 65 % (31-73) Lymphocytes (%) (Auto) 23 % (24-48) Monocytes (%) (Auto) 11 % (0-9) Eosinophils (%) (Auto) 1 % (0-3) Basophils (%) (Auto) 1 % (0-3) Neutrophils # (Auto) 3.8 x10^3/uL (1.8-7.7) Lymphocytes # (Auto) 1.3 x10^3/uL (1.0-4.8) Monocytes # (Auto) 0.6 x10^3/uL (0.0-1.1) Eosinophils # (Auto) 0.0 x10^3/uL (0.0-0.7) Basophils # (Auto) 0.1 x10^3/uL (0.0-0.2) Prothrombin Time 18.8 SEC (11.7-14.0) Prothromb Time International Ratio 1.6 (0.8-1.1) Activated Partial Thromboplast Time 35 SEC (24-38) Sodium Level 143 mmol/L (136-145) Potassium Level 3.4 mmol/L (3.5-5.1) Chloride Level 103 mmol/L (98-107) Carbon Dioxide Level 26 mmol/L (21-32) Anion Gap 14 (6-14) Blood Urea Nitrogen 31 mg/dL (8-26) Creatinine 2.0 mg/dL (0.7-1.3) Estimated GFR (Cockcroft-Gault) 33.6 BUN/Creatinine Ratio 16 (6-20) Glucose Level 122 mg/dL (70-99) Lactic Acid Level 3.7 mmol/L (0.4-2.0) 2.8 mmol/L (0.4-2.0) Calcium Level 10.6 mg/dL (8.5-10.1) Phosphorus Level 3.8 mg/dL (2.6-4.7) Magnesium Level 2.4 mg/dL (1.8-2.4) Total Bilirubin 4.5 mg/dL (0.2-1.0) Aspartate Amino Transf (AST/SGOT) 47 U/L (15-37) Alanine Aminotransferase (ALT/SGPT) 52 U/L (16-63) Alkaline Phosphatase 121 U/L (46-116) Ammonia 20 mcmol/L (11-34) Creatine Kinase 147 U/L (39-308) Troponin I High Sensitivity 54 ng/L (4-75) PE-Wzm-C-Type Natriuretic Peptide 9514 pg/mL (0-124) Total Protein 7.2 g/dL (6.4-8.2) Albumin 3.8 g/dL (3.4-5.0) Albumin/Globulin Ratio 1.1 (1.0-1.7) Lipase 29 U/L (73-393) Ethyl Alcohol Level < 10 mg/dL (0-10) O2 Saturation 95 % (92-99) Arterial Blood pH 7.38 (7.35-7.45) Arterial Blood pCO2 at Patient Temp 31 mmHg (35-46) Arterial Blood pO2 at Patient Temp 85 mmHg (65-108) Arterial Blood HCO3 18 mmol/L (21-28) Arterial Blood Base Excess -6 mmol/L (-3-3) FiO2 Room air Urine Collection Type Unknown Urine Color (Auto) Light yellow Urine Turbidity Clear Urine pH (Auto) 5.5 (<5.0-8.0) Urine Specific [place] 1.009 (1.000-1.030) Urine Protein (Auto) Negative mg/dL (Negative) Urine Glucose (Auto)(UA) Negative mg/dL (Negative) Urine Ketones (Auto) Negative mg/dL (Negative) Urine Blood (Auto) Negative (Negative) Urine Nitrite Negative (Negative) Urine Bilirubin (Auto) Negative (Negative) Urine Urobilinogen (Auto) Normal mg/dL (Normal) Urine Leukocyte Esterase (Auto) Negative (Negative) Urine RBC 1-2 /HPF (0-2) Urine WBC 1-4 /HPF (0-4) Urine Bacteria 0 /HPF (0-FEW) Urine Hyaline Casts Few /HPF Urine Mucus Marked /LPF Urine Opiates Screen Neg (NEG) Urine Methadone Screen Neg (NEG) Urine Barbiturates Neg (NEG) Urine Phencyclidine Screen Neg (NEG) Urine Amphetamine/Methamphetamine Neg (NEG) Urine Benzodiazepines Screen Neg (NEG) Urine Cocaine Screen Neg (NEG) Urine Cannabinoids Screen Pos (NEG) Urine Ethyl Alcohol Neg (NEG) Test 09/10/21 03:00 Prothrombin Time 20.7 SEC (11.7-14.0) Prothromb Time International Ratio 1.8 (0.8-1.1) Assessment/Plan Assessment/Plan 1. Mild acute on chronic systolic heart failure: Most likely secondary to noncompliance with medications and salt restrictions. He is presently better compensated after he received diuresis in ED. Last 2D echo at [facility] in 2018 showed EF 30 to 35%. We will obtain records from primary programming internship. 2. Nonischemic cardiomyopathy s/p biventricular ICD implantation 15 years ago and more recent generator change, clinically stable 3. Atrial fibrillation, most probably permanent, rate controlled. Telemetry showed paced rhythm. Continue warfarin for stroke prophylaxis. 4. Acute on chronic renal insufficiency: Consider nephrology consultation 5. Mental status changes most probably metabolic encephalopathy. Treat per IM. 6. Hypertension: Controlled 7. Hypothyroidism: Continue levothyroxine Thank you for your consultation MARK DAVIS MD Sep 10, 2021 11:08
--- NOTE | 2021-09-10 12:15 | PDOC ---
[employer] PROGRESS NOTE Date of Service DOS: DATE: 09/10/21 TIME: 12:05 Chief Complaint Chief Complaint Generalized weakness Acute encephalopathy - likely hepatic Failure to thrive [place] Thrombocytopenia Elevated bilirubin Painless jaundice chronic systolic heart failure s/p biventricular ICD implantation and atrial fibrillation Plan: We will place consult to nephrology due to [place] Last ER visit on 09/14/2014 BUN 18 and creatinine 1.4. Patient's confusion may be secondary to his uremia. Will provide gentle hydration. We will obtain echocardiogram and consult cardiology due to his likely heart failure as etiology of weakness. Liver enzymes are not terribly elevated. Will monitor. No signs of infection in urine. Patient denies pain from kidney stones or any flank pain. If no improvement with conservative measures, will place consult to neurology. PT/OT Resume medications FEN - Cardiac diet PPX - warfarin FULL CODE/patient surrogate decision-maker is his brother (Gerald Baca) Dispo - inpatient for above History of Present Illness History of Present Illness Patient is a 66-year-old man with past medical history A. fib on warfarin, CHF, depression, gout, presents to the ED at the behest of his brother. Family's immediate concern is patient's generalized weakness and confusion over the past several days. Mother states that he is noncompliant with his diet, but has been compliant with his medications to his knowledge. Patient lives at home alone, but family comes to check on him frequently. As of late they have noticed him more confused, with statements like "who is blues dog is this". I tried to get an appointment with a doctor as outpatient, but due to lack of appointments family brought him to the ER instead. Labs on admission showed MCV 107, BUN 31, creatinine 2.0, CBG 122, AST 47, ALT 52, alkaline phosphatase 121. Urine toxicology was positive for cannabis. Urinalysis negative for any signs of infection. CT abdomen did demonstrate moderate inflammatory fat stranding identified about the urinary bladder along the bilateral ureters and bilateral kidneys could be due to cystitis or urinary tract infection, the patient is without urinary symptoms and with negative UA. CT abdomen also demonstrated multiple intrarenal collecting system calculus identified in the left kidney with largest measuring 9 mm left kidney, mild distended gallbladder with [id number] surrounding fat stranding. Acute cholecystitis was a concern per radiology, but patient denies any abdominal pain. The main focus seems to be weakness and confusion. Patient has been admitted for further medical management. 09/10: Confused does not recognize his daughter granddaughter who is in the room currently. Bilirubin elevated CT by my interpretation does show gallbladder inflammation of multiple renal cysts no obstructive nephrolithiasis, ordered abdominal ultrasound and lactulose. Will consult GI. Awaiting echocardiogram. Cardiology following Vitals/I&O Vitals/I&O: Vital Signs Date Time Temp Pulse Resp B/P (MAP) Pulse Ox O2 Delivery O2 Flow Rate FiO2 09/10/21 08:42 81 121/79 09/10/21 08:00 Nasal Cannula 4.0 09/10/21 07:00 97.4 20 98 97.4 I & O 09/09/21 09/09/21 09/10/21 15:00 23:00 07:00 Intake Total 500 ml 120 ml Balance 500 ml 120 ml Physical Exam General: Alert, No acute distress Heart: No murmurs Abdomen: Soft Extremities: No edema Labs Labs: Laboratory Tests Test 09/09/21 12:40 09/09/21 12:42 09/09/21 16:05 09/09/21 16:50 White Blood Count 5.8 x10^3/uL (4.0-11.0) Red Blood Count 4.41 x10^6/uL (4.30-5.70) Hemoglobin 15.3 g/dL (13.0-17.5) Hematocrit 47.4 % (39.0-53.0) Mean Corpuscular Volume 107 fL (79-100) Mean Corpuscular Hemoglobin 35 pg (25-35) Mean Corpuscular Hemoglobin Concent 32 g/dL (31-37) Red Cell Distribution Width 17.9 % (11.5-14.5) Platelet Count 127 x10^3/uL (140-400) Neutrophils (%) (Auto) 65 % (31-73) Lymphocytes (%) (Auto) 23 % (24-48) Monocytes (%) (Auto) 11 % (0-9) Eosinophils (%) (Auto) 1 % (0-3) Basophils (%) (Auto) 1 % (0-3) Neutrophils # (Auto) 3.8 x10^3/uL (1.8-7.7) Lymphocytes # (Auto) 1.3 x10^3/uL (1.0-4.8) Monocytes # (Auto) 0.6 x10^3/uL (0.0-1.1) Eosinophils # (Auto) 0.0 x10^3/uL (0.0-0.7) Basophils # (Auto) 0.1 x10^3/uL (0.0-0.2) Prothrombin Time 18.8 SEC (11.7-14.0) Prothromb Time International Ratio 1.6 (0.8-1.1) Activated Partial Thromboplast Time 35 SEC (24-38) Sodium Level 143 mmol/L (136-145) Potassium Level 3.4 mmol/L (3.5-5.1) Chloride Level 103 mmol/L (98-107) Carbon Dioxide Level 26 mmol/L (21-32) Anion Gap 14 (6-14) Blood Urea Nitrogen 31 mg/dL (8-26) Creatinine 2.0 mg/dL (0.7-1.3) Estimated GFR (Cockcroft-Gault) 33.6 BUN/Creatinine Ratio 16 (6-20) Glucose Level 122 mg/dL (70-99) Lactic Acid Level 3.7 mmol/L (0.4-2.0) 2.8 mmol/L (0.4-2.0) Calcium Level 10.6 mg/dL (8.5-10.1) Phosphorus Level 3.8 mg/dL (2.6-4.7) Magnesium Level 2.4 mg/dL (1.8-2.4) Total Bilirubin 4.5 mg/dL (0.2-1.0) Aspartate Amino Transf (AST/SGOT) 47 U/L (15-37) Alanine Aminotransferase (ALT/SGPT) 52 U/L (16-63) Alkaline Phosphatase 121 U/L (46-116) Ammonia 20 mcmol/L (11-34) Creatine Kinase 147 U/L (39-308) Troponin I High Sensitivity 54 ng/L (4-75) BX-Api-W-Type Natriuretic Peptide 9514 pg/mL (0-124) Total Protein 7.2 g/dL (6.4-8.2) Albumin 3.8 g/dL (3.4-5.0) Albumin/Globulin Ratio 1.1 (1.0-1.7) Lipase 29 U/L (73-393) Ethyl Alcohol Level < 10 mg/dL (0-10) O2 Saturation 95 % (92-99) Arterial Blood pH 7.38 (7.35-7.45) Arterial Blood pCO2 at Patient Temp 31 mmHg (35-46) Arterial Blood pO2 at Patient Temp 85 mmHg (65-108) Arterial Blood HCO3 18 mmol/L (21-28) Arterial Blood Base Excess -6 mmol/L (-3-3) FiO2 Room air Urine Collection Type Unknown Urine Color (Auto) Light yellow Urine Turbidity Clear Urine pH (Auto) 5.5 (<5.0-8.0) Urine Specific [place] 1.009 (1.000-1.030) Urine Protein (Auto) Negative mg/dL (Negative) Urine Glucose (Auto)(UA) Negative mg/dL (Negative) Urine Ketones (Auto) Negative mg/dL (Negative) Urine Blood (Auto) Negative (Negative) Urine Nitrite Negative (Negative) Urine Bilirubin (Auto) Negative (Negative) Urine Urobilinogen (Auto) Normal mg/dL (Normal) Urine Leukocyte Esterase (Auto) Negative (Negative) Urine RBC 1-2 /HPF (0-2) Urine WBC 1-4 /HPF (0-4) Urine Bacteria 0 /HPF (0-FEW) Urine Hyaline Casts Few /HPF Urine Mucus Marked /LPF Urine Opiates Screen Neg (NEG) Urine Methadone Screen Neg (NEG) Urine Barbiturates Neg (NEG) Urine Phencyclidine Screen Neg (NEG) Urine Amphetamine/Methamphetamine Neg (NEG) Urine Benzodiazepines Screen Neg (NEG) Urine Cocaine Screen Neg (NEG) Urine Cannabinoids Screen Pos (NEG) Urine Ethyl Alcohol Neg (NEG) Test 09/10/21 03:00 Prothrombin Time 20.7 SEC (11.7-14.0) Prothromb Time International Ratio 1.8 (0.8-1.1) Assessment and Plan Assessmemt and Plan Problems Medical Problems: (1) Acute renal failure Status: Acute (2) Acute respiratory failure with hypoxia Status: Acute (3) Cholecystitis Status: Acute (4) Congestive heart failure Status: Acute (5) Hyperbilirubinemia Status: Acute (6) Jaundice Status: Acute (7) Lactic acidosis Status: Acute Comment Review of Relevant I have reviewed the following items eladia (where applicable) has been applied. Medications: Current Medications Medications (Trade) Dose Ordered Sig/Kal Route PRN Reason Start Time Stop Time Status Last Admin Dose Admin Sodium Chloride 500 ml @ 500 mls/hr 1X ONCE IV 09/09/21 14:45 09/09/21 15:44 DC 09/09/21 14:47 Furosemide (Lasix) 20 mg 1X ONCE IVP 09/09/21 15:45 09/09/21 15:46 DC 09/09/21 15:53 Potassium Chloride (Klor-Con) 10 meq 1X ONCE PO 09/09/21 15:45 09/09/21 15:46 DC 09/09/21 15:51 Piperacillin Sod/ Tazobactam Sod 3.375 gm/Sodium Chloride 50 ml @ 100 mls/hr 1X ONCE IV 09/09/21 16:00 09/09/21 16:29 DC 09/09/21 16:34 Furosemide (Lasix) 80 mg DAILY PO 09/10/21 09:00 09/10/21 08:41 Lisinopril (Prinivil) 10 mg DAILY PO 09/10/21 09:00 09/10/21 08:41 Carvedilol (Coreg) 25 mg BIDWMEALS PO 09/09/21 19:00 09/10/21 08:42 Levothyroxine Sodium (Synthroid) 200 mcg DAILY06 PO 09/10/21 06:00 09/10/21 05:53 Warfarin Sodium (Coumadin Per Pharmacy) 1 each PRN DAILY PRN MC SEE COMMENTS 09/09/21 18:30 09/09/21 18:38 Warfarin Sodium (Coumadin) 4 mg 1X WARF ONCE PO 09/09/21 19:00 09/09/21 19:01 DC 09/09/21 18:49 Justifications for Admission Other Justification GAB MARROQUIN MD Sep 10, 2021 12:15
[2021-09-10] MEDS: LACTULOSE 20 GM/30 ML SOLUTION. PO SCH ×2 (13:00→20:53)
--- NOTE | 2021-09-10 13:08 | NUR ---
Pharmacy Warfarin Dosing Note S: Pharmacy consulted to assist with anticoagulation therapy O: TONIA CAMP is a 66 year old M with a history of Atrial Fibrillation LABS: Last INR: 1.8 Last HGB: 15.3 Last HCT: 47.7 Last PLT: 127 Last dose of 2.5 mg given on at A:INR of 1.8 is below desired range of 2 - 3. After speaking with primary, will hold warfarin dose today until further evaulation of liver impairment is performed. P: HOLD warfarin dose today Next INR due 09/11/21 Pharmacy anticoagulation service will continue to follow. CHICHI JORDAN [facility], 09/10/21 [id number]
[2021-09-10 13:45] LABS: ALBUMIN 3.4 g/dL (3.4-5.0); ALBUMIN/GLOBULIN RATIO 1.1 (1.0-1.7); CALCIUM 9.8 mg/dL (8.5-10.1); CREATININE 1.9 mg/dL (0.7-1.3); GFR 35.6; POTASSIUM 3.4 mmol/L (3.5-5.1); TOTAL BILIRUBIN 4.7 mg/dL (0.2-1.0); TOTAL PROTEIN 6.4 g/dL (6.4-8.2)
[2021-09-10 15:00] VITALS: BP 114/79
[2021-09-10 19:19] VITALS: BP 118/82
[2021-09-10 22:53] VITALS: BP 131/85
[2021-09-11 03:00] VITALS: BP 107/68
[2021-09-11 04:54] LABS: PROTHROMBIN TIME PATIENT 20.7 SEC (11.7-14.0)
[2021-09-11] MEDS: LEVOTHYROXINE 112 MCG TABLET PO SCH (05:56)
[2021-09-11 07:00] VITALS: BP 121/77
--- NOTE | 2021-09-11 08:18 | PDOC ---
PROGRESS NOTES Date of Service: DATE: 09/11/21 TIME: 08:18 Subjective Subjective c/o dyspnea Objective Objective Vital Signs Date Time Temp Pulse Resp B/P (MAP) Pulse Ox O2 Delivery O2 Flow Rate FiO2 09/11/21 03:00 97.8 75 18 107/68 (81) 98 Nasal Cannula 4.0 97.8 Intake and Output 09/11/21 07:00 Intake Total 300 ml Output Total 650 ml Balance -350 ml Intake Oral 300 ml Output Urine Total 650 ml # Voids 4 Physical Exam Abdomen: Soft Heart: No murmurs Extremities: No edema General: Alert, No acute distress HEENT: Atraumatic Lungs: Other (Bilateral basal crepitations) Neuro: Normal speech Psych/Mental Status: Mood NL Assessment Assessment 1. Mild acute on chronic systolic heart failure: Most likely secondary to noncompliance with medications and salt restrictions. He is clinically better compensated. Last 2D echo at [facility] in 2019 showed EF 30 to 35%. We will obtain records from primary chief port director. Continue current medical regimen 2. Nonischemic cardiomyopathy s/p biventricular ICD implantation 15 years ago and more recent generator change, clinically stable 3. Atrial fibrillation, most probably permanent, rate controlled. Telemetry showed paced rhythm. Continue warfarin for stroke prophylaxis. 4. Acute on chronic renal insufficiency: Consider nephrology consultation 5. Mental status changes most probably metabolic encephalopathy. Treat per IM. 6. Hypertension: Controlled 7. Hypothyroidism: Continue levothyroxine Plan Plan of Care Problems Medical Problems: (1) Acute renal failure Status: Acute (2) Acute respiratory failure with hypoxia Status: Acute (3) Cholecystitis Status: Acute (4) Congestive heart failure Status: Acute (5) Hyperbilirubinemia Status: Acute (6) Jaundice Status: Acute (7) Lactic acidosis Status: Acute Comment Review of Relevant I have reviewed the following items eladia (where applicable) has been applied. Labs Laboratory Tests Test 09/10/21 12:15 09/11/21 04:30 Sodium Level 142 mmol/L (136-145) Potassium Level 3.4 mmol/L (3.5-5.1) Chloride Level 103 mmol/L (98-107) Carbon Dioxide Level 29 mmol/L (21-32) Anion Gap 10 (6-14) Blood Urea Nitrogen 30 mg/dL (8-26) Creatinine 1.9 mg/dL (0.7-1.3) Estimated GFR (Cockcroft-Gault) 35.6 BUN/Creatinine Ratio 16 (6-20) Glucose Level 93 mg/dL (70-99) Calcium Level 9.8 mg/dL (8.5-10.1) Total Bilirubin 4.7 mg/dL (0.2-1.0) Aspartate Amino Transf (AST/SGOT) 40 U/L (15-37) Alanine Aminotransferase (ALT/SGPT) 48 U/L (16-63) Alkaline Phosphatase 105 U/L (46-116) Total Protein 6.4 g/dL (6.4-8.2) Albumin 3.4 g/dL (3.4-5.0) Albumin/Globulin Ratio 1.1 (1.0-1.7) Prothrombin Time 20.7 SEC (11.7-14.0) Prothromb Time International Ratio 1.8 (0.8-1.1) Thyroid Stimulating Hormone (TSH) 31.338 uIU/mL (0.358-3.74) Microbiology 09/09/21 Blood Culture - Preliminary, Resulted NO GROWTH AFTER 1 DAY Medications Current Medications Furosemide (Lasix) 80 mg DAILY PO Last administered on 09/10/21at 08:41; Start 09/10/21 at 09:00 Lactulose (Lactulose) 20 gm BID PO Last administered on 09/10/21at 20:53; Start 09/10/21 at 13:00 Levothyroxine Sodium (Synthroid) 112 mcg DAILY06 PO Last administered on 09/11/21at 05:56; Start 09/11/21 at 06:00 Lisinopril (Prinivil) 10 mg DAILY PO Last administered on 09/10/21at 08:41; Start 09/10/21 at 09:00; Stop 09/10/21 at 12:58; Status DC Warfarin Sodium (Coumadin - No Dose Today) 1 each 1X WARF ONCE MC ; Start 09/10/21 at 16:00; Stop 09/10/21 at 16:01; Status DC Warfarin Sodium (Coumadin) 2.5 mg DAILY PO ; Start 09/10/21 at 09:00; Stop 09/09/21 at 18:37; Status DC Vitals/I & O Vital Sign - Last 24 Hours 09/10/21 09/10/21 09/10/21 09/10/21 08:41 08:42 15:00 16:57 Temp 97.2 97.2 Pulse 81 81 75 75 Resp 20 B/P (MAP) 121/79 121/79 114/79 (91) 114/79 Pulse Ox 98 O2 Delivery Nasal Cannula O2 Flow Rate 4.0 09/10/21 09/10/21 09/10/21 09/11/21 19:19 19:25 22:53 03:00 Temp 97.4 97.9 97.8 97.4 97.9 97.8 Pulse 70 75 75 Resp 18 18 B/P (MAP) 118/82 (94) 131/85 (100) 107/68 (81) Pulse Ox 97 96 98 O2 Delivery Nasal Cannula Nasal Cannula Nasal Cannula Nasal Cannula O2 Flow Rate 4.0 4.0 4.0 4.0 Intake and Output 09/10/21 09/10/21 09/11/21 15:00 23:00 07:00 Intake Total 240 ml 60 ml Output Total 200 ml 450 ml Balance 40 ml -390 ml MARK DAVIS MD Sep 11, 2021 08:18
[2021-09-11] MEDS: FUROSEMIDE 80 MG TABLET. PO SCH (09:47)
[2021-09-11] MEDS: LACTULOSE 20 GM/30 ML SOLUTION. PO SCH ×2 (09:48→21:37)
[2021-09-11] MEDS: CARVEDILOL 12.5 MG TABLET. PO SCH ×2 (09:48→16:00)
[2021-09-11 11:00] VITALS: BP 136/90
--- NOTE | 2021-09-11 11:42 | PDOC2 ---
CONSULT Date of Consult Date of Consult DATE: 09/11/21 TIME: 11:38 Reason for Consult Reason for Consult: Jaundice History of Present Illness Reason for Visit: 66 yo Male seen with jaundice. Patient has long standing cardiomyopathy with low EF. Recently noted to be jaundiced with out pain. Weight is stable despite poor appetite. No history of hepatitis is elicted. No risk factors for viral hepatiti s. CT scan is unrevealing for mass and/or obstruction. Past Medical History Cardiovascular: CHF, HTN ( ) Pulmonary: COPD Endocrine: Diabetes, Hypothyroidism Past Surgical History Past Surgical History: Pacemaker Family History Family History: No Significant Social History No ALCOHOL: occassional Drugs: Marijuana Current Problem List Problem List Problems Medical Problems: (1) Acute renal failure Status: Acute (2) Acute respiratory failure with hypoxia Status: Acute (3) Cholecystitis Status: Acute (4) Congestive heart failure Status: Acute (5) Hyperbilirubinemia Status: Acute (6) Jaundice Status: Acute (7) Lactic acidosis Status: Acute Current Medications Current Medications Current Medications Sodium Chloride 500 ml @ 500 mls/hr 1X ONCE IV Last administered on 09/09/21at 14:47; Start 09/09/21 at 14:45; Stop 09/09/21 at 15:44; Status DC Furosemide (Lasix) 20 mg 1X ONCE IVP Last administered on 09/09/21at 15:53; Start 09/09/21 at 15:45; Stop 09/09/21 at 15:46; Status DC Potassium Chloride (Klor-Con) 10 meq 1X ONCE PO Last administered on 09/09/21at 15:51; Start 09/09/21 at 15:45; Stop 09/09/21 at 15:46; Status DC Piperacillin Sod/ Tazobactam Sod 3.375 gm/Sodium Chloride 50 ml @ 100 mls/hr 1X ONCE IV Last administered on 09/09/21at 16:34; Start 09/09/21 at 16:00; Stop 09/09/21 at 16:29; Status DC Furosemide (Lasix) 80 mg DAILY PO Last administered on 09/11/21at 09:47; Start 09/10/21 at 09:00 Lisinopril (Prinivil) 10 mg DAILY PO Last administered on 09/10/21at 08:41; Start 09/10/21 at 09:00; Stop 09/10/21 at 12:58; Status DC Warfarin Sodium (Coumadin) 2.5 mg DAILY PO ; Start 09/10/21 at 09:00; Stop 09/09/21 at 18:37; Status DC Carvedilol (Coreg) 25 mg BIDWMEALS PO Last administered on 09/11/21at 09:48; Start 09/09/21 at 19:00 Levothyroxine Sodium (Synthroid) 200 mcg DAILY06 PO Last administered on 09/10/21at 05:53; Start 09/10/21 at 06:00; Stop 09/10/21 at 12:58; Status DC Warfarin Sodium (Coumadin Per Pharmacy) 1 each PRN DAILY PRN MC SEE COMMENTS Last administered on 09/10/21at 13:07; Start 09/09/21 at 18:30 Ondansetron HCl (Zofran) 4 mg PRN Q6HRS PRN IVP NAUSEA/VOMITING; Start 09/09/21 at 18:30 Al Hydroxide/Mg Hydroxide (Mylanta Plus Xs) 30 ml PRN Q3HRS PRN PO HEARTBURN / GAS; Start 09/09/21 at 18:30 Calcium Carbonate/ Glycine (Tums) 500 mg PRN Q3HRS PRN PO UPSET STOMACH; Start 09/09/21 at 18:30 Zolpidem Tartrate (Ambien) 5 mg PRN QHS PRN PO INSOMNIA, MAY REPEAT IN 1HR; Start 09/09/21 at 18:30 Acetaminophen/ Hydrocodone Bitart (Lortab 5/325) 1 tab PRN Q4HRS PRN PO MILD PAIN 1-3; Start 09/09/21 at 18:30 Acetaminophen (Tylenol) 650 mg PRN Q6HRS PRN PO Headaches, Temp > 101.5F; Start 09/09/21 at 18:30 Magnesium Hydroxide (Milk Of Magnesia) 2,400 mg PRN Q12HR PRN PO CONSTIPATION; Start 09/09/21 at 18:30 Warfarin Sodium (Coumadin) 4 mg 1X WARF ONCE PO Last administered on 09/09/21at 18:49; Start 09/09/21 at 19:00; Stop 09/09/21 at 19:01; Status DC Lactulose (Lactulose) 20 gm BID PO Last administered on 09/11/21at 09:48; Start 09/10/21 at 13:00 Levothyroxine Sodium (Synthroid) 112 mcg DAILY06 PO Last administered on 09/11/21at 05:56; Start 09/11/21 at 06:00 Warfarin Sodium (Coumadin - No Dose Today) 1 each 1X WARF ONCE MC ; Start 09/10/21 at 16:00; Stop 09/10/21 at 16:01; Status DC Active Scripts Active Reported Testosterone 5 Gm Powder 5 Gm MC Furosemide 80 Mg Tablet 80 Mg PO DAILY Synthroid (Levothyroxine Sodium) 200 Mcg Tablet 200 Mcg PO DAILYAC Carvedilol 25 Mg Tablet 25 Mg PO BIDWMEALS Lisinopril 10 Mg Tablet 10 Mg PO DAILY Warfarin Sodium 2.5 Mg Tablet 2.5 Mg PO DAILY Allergies Allergies: Coded Allergies: No Known Drug Allergies (Unverified , 09/14/14) Physical Exam Lungs: Clear to auscultation Heart: Normal S1, Normal S2 Abdomen: Normal bowel sounds, Soft Vitals VITALS Vital Signs Date Time Temp Pulse Resp B/P (MAP) Pulse Ox O2 Delivery O2 Flow Rate FiO2 09/11/21 09:48 77 121/77 09/11/21 08:00 Nasal Cannula 4.0 09/11/21 07:00 96.1 18 97 96.1 Labs Labs Laboratory Tests Test 09/09/21 12:40 09/09/21 12:42 09/09/21 16:05 09/09/21 16:50 White Blood Count 5.8 x10^3/uL (4.0-11.0) Red Blood Count 4.41 x10^6/uL (4.30-5.70) Hemoglobin 15.3 g/dL (13.0-17.5) Hematocrit 47.4 % (39.0-53.0) Mean Corpuscular Volume 107 fL (79-100) Mean Corpuscular Hemoglobin 35 pg (25-35) Mean Corpuscular Hemoglobin Concent 32 g/dL (31-37) Red Cell Distribution Width 17.9 % (11.5-14.5) Platelet Count 127 x10^3/uL (140-400) Neutrophils (%) (Auto) 65 % (31-73) Lymphocytes (%) (Auto) 23 % (24-48) Monocytes (%) (Auto) 11 % (0-9) Eosinophils (%) (Auto) 1 % (0-3) Basophils (%) (Auto) 1 % (0-3) Neutrophils # (Auto) 3.8 x10^3/uL (1.8-7.7) Lymphocytes # (Auto) 1.3 x10^3/uL (1.0-4.8) Monocytes # (Auto) 0.6 x10^3/uL (0.0-1.1) Eosinophils # (Auto) 0.0 x10^3/uL (0.0-0.7) Basophils # (Auto) 0.1 x10^3/uL (0.0-0.2) Prothrombin Time 18.8 SEC (11.7-14.0) Prothromb Time International Ratio 1.6 (0.8-1.1) Activated Partial Thromboplast Time 35 SEC (24-38) Sodium Level 143 mmol/L (136-145) Potassium Level 3.4 mmol/L (3.5-5.1) Chloride Level 103 mmol/L (98-107) Carbon Dioxide Level 26 mmol/L (21-32) Anion Gap 14 (6-14) Blood Urea Nitrogen 31 mg/dL (8-26) Creatinine 2.0 mg/dL (0.7-1.3) Estimated GFR (Cockcroft-Gault) 33.6 BUN/Creatinine Ratio 16 (6-20) Glucose Level 122 mg/dL (70-99) Lactic Acid Level 3.7 mmol/L (0.4-2.0) 2.8 mmol/L (0.4-2.0) Calcium Level 10.6 mg/dL (8.5-10.1) Phosphorus Level 3.8 mg/dL (2.6-4.7) Magnesium Level 2.4 mg/dL (1.8-2.4) Total Bilirubin 4.5 mg/dL (0.2-1.0) Aspartate Amino Transf (AST/SGOT) 47 U/L (15-37) Alanine Aminotransferase (ALT/SGPT) 52 U/L (16-63) Alkaline Phosphatase 121 U/L (46-116) Ammonia 20 mcmol/L (11-34) Creatine Kinase 147 U/L (39-308) Troponin I High Sensitivity 54 ng/L (4-75) TN-Agt-D-Type Natriuretic Peptide 9514 pg/mL (0-124) Total Protein 7.2 g/dL (6.4-8.2) Albumin 3.8 g/dL (3.4-5.0) Albumin/Globulin Ratio 1.1 (1.0-1.7) Lipase 29 U/L (73-393) Ethyl Alcohol Level < 10 mg/dL (0-10) O2 Saturation 95 % (92-99) Arterial Blood pH 7.38 (7.35-7.45) Arterial Blood pCO2 at Patient Temp 31 mmHg (35-46) Arterial Blood pO2 at Patient Temp 85 mmHg (65-108) Arterial Blood HCO3 18 mmol/L (21-28) Arterial Blood Base Excess -6 mmol/L (-3-3) FiO2 Room air Urine Collection Type Unknown Urine Color (Auto) Light yellow Urine Turbidity Clear Urine pH (Auto) 5.5 (<5.0-8.0) Urine Specific [place] 1.009 (1.000-1.030) Urine Protein (Auto) Negative mg/dL (Negative) Urine Glucose (Auto)(UA) Negative mg/dL (Negative) Urine Ketones (Auto) Negative mg/dL (Negative) Urine Blood (Auto) Negative (Negative) Urine Nitrite Negative (Negative) Urine Bilirubin (Auto) Negative (Negative) Urine Urobilinogen (Auto) Normal mg/dL (Normal) Urine Leukocyte Esterase (Auto) Negative (Negative) Urine RBC 1-2 /HPF (0-2) Urine WBC 1-4 /HPF (0-4) Urine Bacteria 0 /HPF (0-FEW) Urine Hyaline Casts Few /HPF Urine Mucus Marked /LPF Urine Opiates Screen Neg (NEG) Urine Methadone Screen Neg (NEG) Urine Barbiturates Neg (NEG) Urine Phencyclidine Screen Neg (NEG) Urine Amphetamine/Methamphetamine Neg (NEG) Urine Benzodiazepines Screen Neg (NEG) Urine Cocaine Screen Neg (NEG) Urine Cannabinoids Screen Pos (NEG) Urine Ethyl Alcohol Neg (NEG) Test 09/10/21 03:00 09/10/21 12:15 09/11/21 04:30 Prothrombin Time 20.7 SEC (11.7-14.0) 20.7 SEC (11.7-14.0) Prothromb Time International Ratio 1.8 (0.8-1.1) 1.8 (0.8-1.1) Sodium Level 142 mmol/L (136-145) Potassium Level 3.4 mmol/L (3.5-5.1) Chloride Level 103 mmol/L (98-107) Carbon Dioxide Level 29 mmol/L (21-32) Anion Gap 10 (6-14) Blood Urea Nitrogen 30 mg/dL (8-26) Creatinine 1.9 mg/dL (0.7-1.3) Estimated GFR (Cockcroft-Gault) 35.6 BUN/Creatinine Ratio 16 (6-20) Glucose Level 93 mg/dL (70-99) Calcium Level 9.8 mg/dL (8.5-10.1) Total Bilirubin 4.7 mg/dL (0.2-1.0) Aspartate Amino Transf (AST/SGOT) 40 U/L (15-37) Alanine Aminotransferase (ALT/SGPT) 48 U/L (16-63) Alkaline Phosphatase 105 U/L (46-116) Total Protein 6.4 g/dL (6.4-8.2) Albumin 3.4 g/dL (3.4-5.0) Albumin/Globulin Ratio 1.1 (1.0-1.7) Thyroid Stimulating Hormone (TSH) 31.338 uIU/mL (0.358-3.74) Laboratory Tests Test 09/10/21 12:15 09/11/21 04:30 Sodium Level 142 mmol/L (136-145) Potassium Level 3.4 mmol/L (3.5-5.1) Chloride Level 103 mmol/L (98-107) Carbon Dioxide Level 29 mmol/L (21-32) Anion Gap 10 (6-14) Blood Urea Nitrogen 30 mg/dL (8-26) Creatinine 1.9 mg/dL (0.7-1.3) Estimated GFR (Cockcroft-Gault) 35.6 BUN/Creatinine Ratio 16 (6-20) Glucose Level 93 mg/dL (70-99) Calcium Level 9.8 mg/dL (8.5-10.1) Total Bilirubin 4.7 mg/dL (0.2-1.0) Aspartate Amino Transf (AST/SGOT) 40 U/L (15-37) Alanine Aminotransferase (ALT/SGPT) 48 U/L (16-63) Alkaline Phosphatase 105 U/L (46-116) Total Protein 6.4 g/dL (6.4-8.2) Albumin 3.4 g/dL (3.4-5.0) Albumin/Globulin Ratio 1.1 (1.0-1.7) Prothrombin Time 20.7 SEC (11.7-14.0) Prothromb Time International Ratio 1.8 (0.8-1.1) Thyroid Stimulating Hormone (TSH) 31.338 uIU/mL (0.358-3.74) Assessment/Plan Assessment/Plan Juandice- with low EF, most likely secondary to congestion, medical therapy JASON SALAZAR MD Sep 11, 2021 11:42
--- NOTE | 2021-09-11 11:51 | RAD ---
STUDY: US Abdomen Complete INDICATION: Right upper quadrant pain. COMPARISON: CT from 09/09/2021 TECHNIQUE: Real-time grayscale and color Doppler sonographic evaluation of the abdomen. Findings: Limited assessment of the pancreas, spleen and aorta/IVC secondary to bowel gas. The liver measures 16.9 cm longitudinal. No focal parenchymal abnormality. Thick-walled gallbladder at 0.4 cm. The gallbladder lumen is not significantly dilated. There may be some layering sludge. Nondilated common duct at 0.4 cm. Bilateral renal cysts. Right renal cysts measuring 3.8 x 4.2 x 5.2 cm and 3.3 x 4.3 x 2.8 cm. Left re nal cysts measuring 3.7 x 3.5 x 3.5 cm and 3.2 x 2.7 x 2.7 cm. No hydronephrosis. Poorly visualized but patent IVC at the liver. Patent main portal vein with hepatopedal flow. Impression: 1. Thick-walled gallbladder measuring just over 0.4 cm. Possible gallbladder sludge. The gallbladder lumen is not significantly dilated but cholecystitis is still suspected given right upper quadrant p ain. As deemed clinically necessary a HIDA scan would allow for confirmation. 2. Nondilated common duct. No focal hepatic parenchymal abnormality. 3. Bilateral renal cysts without Doppler flow or mural nodularity. Surveillance could be considered in 6-12 months. 4. Limited evaluation of the pancreas, spleen and aorta/IVC secondary to bowel gas. Electronically signed by: ANTIONETTE CHIANG MD (09/11/2021 11:49 AM) [facility]
--- NOTE | 2021-09-11 11:57 | PDOC ---
[employer] PROGRESS NOTE Date of Service DOS: DATE: 09/11/21 TIME: 11:36 Chief Complaint Chief Complaint Generalized weakness Acute encephalopathy - likely hepatic Failure to thrive [place] Thrombocytopenia Elevated bilirubin Painless jaundice chronic systolic heart failure s/p biventricular ICD implantation and atrial fibrillation Plan: We will place consult to nephrology due to [place] Last ER visit on 09/14/2014 BUN 18 and creatinine 1.4. Patient's confusion may be secondary to his uremia. Will provide gentle hydration. We will obtain echocardiogram and consult cardiology due to his likely heart failure as etiology of weakness. Liver enzymes are not terribly elevated. Will monitor. No signs of infection in urine. Patient denies pain from kidney stones or any flank pain. If no improvement with conservative measures, will place consult to neurology. PT/OT Resume medications FEN - Cardiac diet PPX - warfarin FULL CODE/patient surrogate decision-maker is his brother (Gerald Baca) Dispo - inpatient for above History of Present Illness History of Present Illness Patient is a 66-year-old man with past medical history A. fib on warfarin, CHF, depression, gout, presents to the ED at the behest of his brother. Family's immediate concern is patient's generalized weakness and confusion over the past several days. Mother states that he is noncompliant with his diet, but has been compliant with his medications to his knowledge. Patient lives at home alone, but family comes to check on him frequently. As of late they have noticed him more confused, with statements like "who is blues dog is this". I tried to get an appointment with a doctor as outpatient, but due to lack of appointments family brought him to the ER instead. Labs on admission showed MCV 107, BUN 31, creatinine 2.0, CBG 122, AST 47, ALT 52, alkaline phosphatase 121. Urine toxicology was positive for cannabis. Urinalysis negative for any signs of infection. CT abdomen did demonstrate moderate inflammatory fat stranding identified about the urinary bladder along the bilateral ureters and bilateral kidneys could be due to cystitis or urinary tract infection, the patient is without urinary symptoms and with negative UA. CT abdomen also demonstrated multiple intrarenal collecting system calculus identified in the left kidney with largest measuring 9 mm left kidney, mild distended gallbladder with [id number] surrounding fat stranding. Acute cholecystitis was a concern per radiology, but patient denies any abdominal pain. The main focus seems to be weakness and confusion. Patient has been admitted for further medical management. 09/10: Confused does not recognize his daughter granddaughter who is in the room currently. Bilirubin elevated CT by my interpretation does show gallbladder inflammation of multiple renal cysts no obstructive nephrolithiasis, ordered abdominal ultrasound and lactulose. Will consult GI. Awaiting echocardiogram. Cardiology following 09/11: Still with bilirubin elevated bedside ultrasound observed. Family bedside worried about his swelling. Vitals/I&O Vitals/I&O: Vital Signs Date Time Temp Pulse Resp B/P (MAP) Pulse Ox O2 Delivery O2 Flow Rate FiO2 09/11/21 09:48 77 121/77 09/11/21 08:00 Nasal Cannula 4.0 09/11/21 07:00 96.1 18 97 96.1 I & O 09/10/21 09/10/21 09/11/21 15:00 23:00 07:00 Intake Total 240 ml 60 ml Output Total 200 ml 450 ml Balance 40 ml -390 ml Physical Exam General: Alert, No acute distress Heart: No murmurs Abdomen: Soft Extremities: No edema Labs Labs: Laboratory Tests Test 09/10/21 12:15 09/11/21 04:30 Sodium Level 142 mmol/L (136-145) Potassium Level 3.4 mmol/L (3.5-5.1) Chloride Level 103 mmol/L (98-107) Carbon Dioxide Level 29 mmol/L (21-32) Anion Gap 10 (6-14) Blood Urea Nitrogen 30 mg/dL (8-26) Creatinine 1.9 mg/dL (0.7-1.3) Estimated GFR (Cockcroft-Gault) 35.6 BUN/Creatinine Ratio 16 (6-20) Glucose Level 93 mg/dL (70-99) Calcium Level 9.8 mg/dL (8.5-10.1) Total Bilirubin 4.7 mg/dL (0.2-1.0) Aspartate Amino Transf (AST/SGOT) 40 U/L (15-37) Alanine Aminotransferase (ALT/SGPT) 48 U/L (16-63) Alkaline Phosphatase 105 U/L (46-116) Total Protein 6.4 g/dL (6.4-8.2) Albumin 3.4 g/dL (3.4-5.0) Albumin/Globulin Ratio 1.1 (1.0-1.7) Prothrombin Time 20.7 SEC (11.7-14.0) Prothromb Time International Ratio 1.8 (0.8-1.1) Thyroid Stimulating Hormone (TSH) 31.338 uIU/mL (0.358-3.74) Assessment and Plan Assessmemt and Plan Problems Medical Problems: (1) Acute renal failure Status: Acute (2) Acute respiratory failure with hypoxia Status: Acute (3) Cholecystitis Status: Acute (4) Congestive heart failure Status: Acute (5) Hyperbilirubinemia Status: Acute (6) Jaundice Status: Acute (7) Lactic acidosis Status: Acute Comment Review of Relevant I have reviewed the following items eladia (where applicable) has been applied. Medications: Current Medications Medications (Trade) Dose Ordered Sig/Kal Route PRN Reason Start Time Stop Time Status Last Admin Dose Admin Lactulose (Lactulose) 20 gm BID PO 09/10/21 13:00 09/11/21 09:48 Levothyroxine Sodium (Synthroid) 112 mcg DAILY06 PO 09/11/21 06:00 09/11/21 05:56 Justifications for Admission Other Justification GAB MARROQUIN MD Sep 11, 2021 11:57
[2021-09-11 15:00] VITALS: BP 114/80
[2021-09-11] MEDS ORDERED: WARFARIN 3 MG TABLET. PO ONE (16:00)
[2021-09-11 19:00] VITALS: BP 157/94
[2021-09-11 23:18] VITALS: BP 140/81
[2021-09-12 03:27] VITALS: BP 126/88
[2021-09-12] MEDS: LEVOTHYROXINE 112 MCG TABLET PO SCH (05:48)
[2021-09-12 07:00] VITALS: BP 110/73
[2021-09-12] MEDS ORDERED: PERFLUTREN PROTEIN-A MICROSPHR 0.22 MG/ML 3 ML VIAL. IV ONE (07:45)
[2021-09-12] MEDS: LACTULOSE 20 GM/30 ML SOLUTION. PO SCH ×2 (09:01→20:32)
[2021-09-12] MEDS: FUROSEMIDE 80 MG TABLET. PO SCH (09:02)
[2021-09-12] MEDS: CARVEDILOL 12.5 MG TABLET. PO SCH ×2 (09:02→16:48)
--- NOTE | 2021-09-12 09:52 | PDOC ---
Date of Service: DATE: 09/12/21 TIME: 09:44 Subjective: Subjective: No GI complaints - denies abdominal pain, eating breakfast "if you can call it that." Asks why we're just waiting around. Objective: Objective: INR 1.8 - h/o A Fib on Warfarin, h/o NICM. Ammonia 20 (WNL). Plt 127. MCV 107. TSH 31. +cannabinoids Getting lactulose, no stools charted. Vital Signs: Vital Signs Date Time Temp Pulse Resp B/P (MAP) Pulse Ox O2 Delivery O2 Flow Rate FiO2 09/12/21 09:02 85 110/73 09/12/21 07:00 97.9 24 97 Nasal Cannula 4.0 97.9 Labs: BLOOD CULTURE Preliminary NO GROWTH AFTER 2 DAYS Imaging: Abd US Impression: 1. Thick-walled gallbladder measuring just over 0.4 cm. Possible gallbladder sludge. The gallbladder lumen is not significantly dilated but cholecystitis is still suspected given right upper quadrant pain. As deemed clinically necessary a HIDA scan would allow for confirmation. 2. Nondilated common duct. No focal hepatic parenchymal abnormality. 3. Bilateral renal cysts without Doppler flow or mural nodularity. Surveillance could be considered in 6-12 months. 4. Limited evaluation of the pancreas, spleen and aorta/IVC secondary to bowel gas. C/A/P CT IMPRESSION: 1. Moderate inflammatory fat stranding identified about the urinary bladder along the bilateral ureters and bilateral kidneys could be due to cystitis or urinary tract infection. Correlate with lab values. 2. Multiple intrarenal collecting system calculus identified in the left kidney with largest measuring 9 mm left kidney. 3. Multiple cystic structures identified in the bilateral kidneys with the largest measuring 4.3 cm in the right kidney. Follow-up nonemergent ultrasound kidneys can be considered. 4. Mild distended gallbladder with [id number] surrounding fat stranding. Acute cholecystitis is not excluded. Recommend ultrasound right upper quadrant. 5. Mild compression changes of T12 vertebral body. PE: GEN: NAD LUNGS: CTAB HEART: RRR ABD: large, soft, non-tender NEURO/PSYCH: A & O, odd affect A/P: Hyperbilirubinemia - suspect 2/2 CHF Elevated TSH - impressive at 31 -- Observe from GI standpoint, follow labs. Justicifation of Admission Dx: Justifications for Admission: Justification of Admission Dx: Yes NAFISA-BRANINE,BETH PA Sep 12, 2021 09:52
[2021-09-12 11:00] VITALS: BP 95/60
[2021-09-12 11:42] LABS: DIRECT BILIRUBIN 1.7 mg/dL (0.0-0.2); TOTAL BILIRUBIN 3.2 mg/dL (0.2-1.0); TOTAL PROTEIN 6.1 g/dL (6.4-8.2)
--- NOTE | 2021-09-12 14:10 | PDOC ---
[employer] PROGRESS NOTE Date of Service DOS: DATE: 09/12/21 TIME: 14:07 Chief Complaint Chief Complaint Generalized weakness Acute encephalopathy - likely hepatic Failure to thrive AMERICA Thrombocytopenia Elevated bilirubin Painless jaundice chronic systolic heart failure s/p biventricular ICD implantation and atrial fibrillation Plan: We will place consult to nephrology due to AMERICA Last ER visit on 09/14/2014 BUN 18 and creatinine 1.4. Patient's confusion may be secondary to his uremia. Will provide gentle hydration. We will obtain echocardiogram and consult cardiology due to his likely heart failure as etiology of weakness. Liver enzymes are not terribly elevated. Will monitor. No signs of infection in urine. Patient denies pain from kidney stones or any flank pain. If no improvement with conservative measures, will place consult to neurology. PT/OT Resume medications FEN - Cardiac diet PPX - warfarin FULL CODE/patient surrogate decision-maker is his brother (Gerald Baca) Dispo - inpatient for above History of Present Illness History of Present Illness Patient is a 66-year-old man with past medical history A. fib on warfarin, CHF, depression, gout, presents to the ED at the behest of his brother. Family's immediate concern is patient's generalized weakness and confusion over the past several days. Mother states that he is noncompliant with his diet, but has been compliant with his medications to his knowledge. Patient lives at home alone, but family comes to check on him frequently. As of late they have noticed him more confused, with statements like "who is blues dog is this". I tried to get an appointment with a doctor as outpatient, but due to lack of appointments family brought him to the ER instead. Labs on admission showed MCV 107, BUN 31, creatinine 2.0, CBG 122, AST 47, ALT 52, alkaline phosphatase 121. Urine toxicology was positive for cannabis. Urinalysis negative for any signs of infection. CT abdomen did demonstrate moderate inflammatory fat stranding identified about the urinary bladder along the bilateral ureters and bilateral kidneys could be due to cystitis or urinary tract infection, the patient is without urinary symptoms and with negative UA. CT abdomen also demonstrated multiple intrarenal collecting system calculus identified in the left kidney with largest measuring 9 mm left kidney, mild distended gallbladder with [id number] surrounding fat stranding. Acute cholecystitis was a concern per radiology, but patient denies any abdominal pain. The main focus seems to be weakness and confusion. Patient has been admitted for further medical management. 09/10: Confused does not recognize his daughter granddaughter who is in the room currently. Bilirubin elevated CT by my interpretation does show gallbladder inflammation of multiple renal cysts no obstructive nephrolithiasis, ordered abdominal ultrasound and lactulose. Will consult GI. Awaiting echocardiogram. Cardiology following 09/11: Still with bilirubin elevated bedside ultrasound observed. Family bedside worried about his swelling. 4.4, no stool 4 days, add miralax, OOB to chair, walk hallway, reconsult PT, DC plan soon, Bilirubin much better, home dose of synthroid is 200, change, to 200mcg I have resent request for records to his chief relay tester, , family is there, had a lot of concern and multiple questions about prior information given, Mult med problems noted, CT scan full of chronc problmes. I discussed concern for alcohol use, MCV large, bili was up and now better, and AST up on admit, alcohol abuse best fits these, THC abuse not discussed he is probably not compliant with meds Vitals/I&O Vitals/I&O: Vital Signs Date Time Temp Pulse Resp B/P (MAP) Pulse Ox O2 Delivery O2 Flow Rate FiO2 09/12/21 11:00 98.1 69 20 95/60 (72) 95 Nasal Cannula 4.0 98.1 I & O 09/11/21 09/11/21 09/12/21 15:00 23:00 07:00 Intake Total 180 ml 360 ml 0 ml Output Total 450 ml 1800 ml Balance -270 ml -1440 ml 0 ml Physical Exam General: Alert, Oriented X3, Cooperative, No acute distress Heart: Normal S1, Normal S2 Abdomen: Normal bowel sounds, Soft Extremities: No edema Labs Labs: Laboratory Tests Test 09/12/21 11:15 Total Bilirubin 3.2 mg/dL (0.2-1.0) Direct Bilirubin 1.7 mg/dL (0.0-0.2) Aspartate Amino Transf (AST/SGOT) 41 U/L (15-37) Alanine Aminotransferase (ALT/SGPT) 44 U/L (16-63) Alkaline Phosphatase 94 U/L (46-116) Total Protein 6.1 g/dL (6.4-8.2) Albumin 3.0 g/dL (3.4-5.0) Vitamin B12 Level 1403 pg/mL (247-911) Assessment and Plan Assessmemt and Plan Problems Medical Problems: (1) Acute renal failure Status: Acute (2) Acute respiratory failure with hypoxia Status: Acute (3) Cholecystitis Status: Acute (4) Congestive heart failure Status: Acute (5) Hyperbilirubinemia Status: Acute (6) Jaundice Status: Acute (7) Lactic acidosis Status: Acute Comment Review of Relevant I have reviewed the following items eladia (where applicable) has been applied. Medications: Current Medications Medications (Trade) Dose Ordered Sig/Kal Route PRN Reason Start Time Stop Time Status Last Admin Dose Admin Warfarin Sodium (Coumadin) 3 mg 1X WARF ONCE PO 09/11/21 16:00 09/11/21 16:01 DC 09/11/21 16:00 Justifications for Admission Other Justification KULDEEP AGUILAR MD Sep 12, 2021 14:09
[2021-09-12] MEDS: POLYETHYLENE GLYCOL 3350 17 GM PACKET. PO SCH ×2 (14:45→21:00)
[2021-09-12] MEDS ORDERED: BISACODYL 10 MG SUPP.RECT. PR ONE (14:45)
[2021-09-12 15:00] VITALS: BP 108/79
[2021-09-12] MEDS ORDERED: WARFARIN 4 MG TABLET. PO ONE (16:00)
--- NOTE | 2021-09-12 16:38 | PDOC ---
PROGRESS NOTES Date of Service: DATE: 09/12/21 TIME: 16:36 Subjective Subjective No new complaints Objective Objective Vital Signs Date Time Temp Pulse Resp B/P (MAP) Pulse Ox O2 Delivery O2 Flow Rate FiO2 09/12/21 15:00 98.3 75 20 108/79 (89) 99 Room Air 98.3 09/12/21 11:00 4.0 Intake and Output 09/12/21 07:00 Intake Total 540 ml Output Total 2250 ml Balance -1710 ml Intake Oral 540 ml Output Urine Total 2250 ml # Voids 2 Physical Exam Abdomen: Normal bowel sounds, Soft Heart: Normal S1, Normal S2 Extremities: No edema General: Alert, Oriented X3, Cooperative, No acute distress HEENT: Atraumatic Lungs: Clear to auscultation Neuro: Normal speech Psych/Mental Status: Mood NL Assessment Assessment 1. Mild acute on chronic systolic heart failure: Most likely secondary to noncompliance with medications and salt restrictions. He is clinically better compensated. Last 2D echo at [facility] in 2019 showed EF 30 to 35%. Blood pressure on primary mail order clerk pending. Continue current medical regimen 2. Nonischemic cardiomyopathy s/p biventricular ICD implantation 15 years ago and more recent generator change, clinically stable 3. Atrial fibrillation, most probably permanent, rate controlled. Telemetry showed paced rhythm. Continue warfarin for stroke prophylaxis. 4. Acute on chronic renal insufficiency: Consider nephrology consultation 5. Mental status changes most probably metabolic encephalopathy. Treat per IM. 6. Hypertension: Controlled 7. Hypothyroidism: Continue levothyroxine 8. Hyperbilirubinemia: GI: Plan Plan of Care Problems Medical Problems: (1) Acute renal failure Status: Acute (2) Acute respiratory failure with hypoxia Status: Acute (3) Cholecystitis Status: Acute (4) Congestive heart failure Status: Acute (5) Hyperbilirubinemia Status: Acute (6) Jaundice Status: Acute (7) Lactic acidosis Status: Acute Comment Review of Relevant I have reviewed the following items eladia (where applicable) has been applied. Labs Laboratory Tests Test 09/12/21 11:15 09/12/21 13:50 Total Bilirubin 3.2 mg/dL (0.2-1.0) Direct Bilirubin 1.7 mg/dL (0.0-0.2) Aspartate Amino Transf (AST/SGOT) 41 U/L (15-37) Alanine Aminotransferase (ALT/SGPT) 44 U/L (16-63) Alkaline Phosphatase 94 U/L (46-116) Total Protein 6.1 g/dL (6.4-8.2) Albumin 3.0 g/dL (3.4-5.0) Vitamin B12 Level 1403 pg/mL (247-911) Prothrombin Time 19.0 SEC (11.7-14.0) Prothromb Time International Ratio 1.7 (0.8-1.1) Microbiology 09/09/21 Blood Culture - Preliminary, Resulted NO GROWTH AFTER 3 DAYS Medications Current Medications Bisacodyl (Dulcolax Supp) 10 mg 1X ONCE SD ; Start 09/12/21 at 14:45; Stop 09/12/21 at 14:46; Status DC Levothyroxine Sodium (Synthroid) 200 mcg DAILY06 PO ; Start 09/13/21 at 06:00 Perflutren Protein Type A Microsphe (Optison) 0.66 mg 1X ONCE IV ; Start 09/12/21 at 07:45; Stop 09/12/21 at 07:46; Status DC Polyethylene Glycol (miraLAX PACKET) 17 gm BID PO ; Start 09/12/21 at 14:45 Warfarin Sodium (Coumadin) 4 mg 1X WARF ONCE PO ; Start 09/12/21 at 16:00; Stop 09/12/21 at 16:01; Status DC Vitals/I & O Vital Sign - Last 24 Hours 09/11/21 09/11/21 09/11/21 09/12/21 19:00 20:00 23:18 03:27 Temp 98.7 97.6 98.4 98.7 97.6 98.4 Pulse 70 77 75 Resp 18 16 18 B/P (MAP) 157/94 (115) 140/81 (100) 126/88 (101) Pulse Ox 98 100 97 O2 Delivery Nasal Cannula Nasal Cannula Nasal Cannula Nasal Cannula O2 Flow Rate 4.0 4.0 4.0 4.0 09/12/21 09/12/21 09/12/21 09/12/21 07:00 08:00 09:02 11:00 Temp 97.9 98.1 97.9 98.1 Pulse 85 85 69 Resp 24 20 B/P (MAP) 110/73 (85) 110/73 95/60 (72) Pulse Ox 97 95 O2 Delivery Nasal Cannula Nasal Cannula Nasal Cannula O2 Flow Rate 4.0 4.0 4.0 09/12/21 15:00 Temp 98.3 98.3 Pulse 75 Resp 20 B/P (MAP) 108/79 (89) Pulse Ox 99 O2 Delivery Room Air Intake and Output 09/11/21 09/11/21 09/12/21 15:00 23:00 07:00 Intake Total 180 ml 360 ml 0 ml Output Total 450 ml 1800 ml Balance -270 ml -1440 ml 0 ml MARK DAVIS MD Sep 12, 2021 16:38
[2021-09-12 19:00] VITALS: BP 120/85
[2021-09-12 22:39] VITALS: BP 119/83
[2021-09-13 02:45] VITALS: BP 112/78
[2021-09-13] MEDS ORDERED: LEVOTHYROXINE 100 MCG TABLET PO SCH (06:00)
[2021-09-13 07:00] VITALS: BP 112/84
[2021-09-13 08:29] LABS: PROTHROMBIN TIME PATIENT 19.3 SEC (11.7-14.0)
[2021-09-13] MEDS: FUROSEMIDE 80 MG TABLET. PO SCH (08:45)
[2021-09-13] MEDS: POLYETHYLENE GLYCOL 3350 17 GM PACKET. PO SCH (08:46)
[2021-09-13] MEDS: LACTULOSE 20 GM/30 ML SOLUTION. PO SCH (08:46)
[2021-09-13] MEDS: CARVEDILOL 12.5 MG TABLET. PO SCH (08:46)
[2021-09-13] MEDS ORDERED: FOLIC/VIT B COMP W-C (RENAL) TABLET. PO SCH (09:00)
[2021-09-13 09:05] LABS: ALBUMIN/GLOBULIN RATIO 1.1 (1.0-1.7); CALCIUM 9.4 mg/dL (8.5-10.1); CREATININE 1.5 mg/dL (0.7-1.3); GFR 46.8; TOTAL BILIRUBIN 3.3 mg/dL (0.2-1.0); TOTAL PROTEIN 5.8 g/dL (6.4-8.2)
[2021-09-13 09:11] LABS: POTASSIUM 2.9 mmol/L (3.5-5.1)
--- NOTE | 2021-09-13 09:22 | NUR ---
Pharmacy Warfarin Dosing Note S:Pharmacy consulted to assist with anticoagulation therapy started with target INR: 2 -3 O:TONIA CAMP is a 66 year old M with Atrial Fibrillation LABS: Last INR: 1.7 Last HGB: 15.3 (09/09) Last HCT: 47.4 (09/09) Last PLT: 127 (09/09) Last dose of 4 mg given on 09/12/21 at 1647 Previous Regimen: 2.5MG DAILY AT HOME Vitamin K given: Not given this admission Drug Interaction Changes: Same Interacting Drug Ongoing Drug Interactions: Lactulose A:INR of 1.7 is below desired range. Target range for this patient is: 2 -3 P: Warfarin dose: 4 mg Today at 1600 Next INR due 09/14/21 Pharmacy anticoagulation service will continue to follow. JESSIE GAMBINO, [facility], 09/13/21 [id number]
[2021-09-13 09:24] LABS: HEMATOCRIT 45.6 % (39.0-53.0); HEMOGLOBIN 14.7 g/dL (13.0-17.5); RED BLOOD COUNT 4.23 x10^6/uL (4.30-5.70); WHITE BLOOD COUNT 4.8 x10^3/uL (4.0-11.0)
[2021-09-13] MEDS ORDERED: POTASSIUM CHLORIDE 20 MEQ TABLET.ER. PO ONE ×2 (09:30→13:30)
--- NOTE | 2021-09-13 09:50 | PDOC ---
Date of Service: DATE: 09/13/21 TIME: 09:47 Subjective: Subjective: Offers no complaints, wonders why he's still here. Objective: Objective: D/w nurse - large stool yesterday, forgetful. Vital Signs: Vital Signs Date Time Temp Pulse Resp B/P (MAP) Pulse Ox O2 Delivery O2 Flow Rate FiO2 09/13/21 08:46 82 115/84 09/13/21 08:00 Nasal Cannula 4.0 09/13/21 07:00 98.2 18 93 98.2 Labs: Laboratory Tests Test 09/12/21 11:15 09/12/21 13:50 09/13/21 07:45 Total Bilirubin 3.2 mg/dL 3.3 mg/dL Direct Bilirubin 1.7 mg/dL Aspartate Amino Transf (AST/SGOT) 41 U/L 42 U/L Alanine Aminotransferase (ALT/SGPT) 44 U/L 46 U/L Alkaline Phosphatase 94 U/L 95 U/L Total Protein 6.1 g/dL 5.8 g/dL Albumin 3.0 g/dL 3.0 g/dL Vitamin B12 Level 1403 pg/mL Prothrombin Time 19.0 SEC 19.3 SEC Prothromb Time International Ratio 1.7 1.7 White Blood Count 4.8 x10^3/uL Red Blood Count 4.23 x10^6/uL Hemoglobin 14.7 g/dL Hematocrit 45.6 % Mean Corpuscular Volume 108 fL Mean Corpuscular Hemoglobin 35 pg Mean Corpuscular Hemoglobin Concent 32 g/dL Red Cell Distribution Width 18.0 % Platelet Count 116 x10^3/uL Sodium Level 142 mmol/L Potassium Level 2.9 mmol/L Chloride Level 103 mmol/L Carbon Dioxide Level 33 mmol/L Anion Gap 6 Blood Urea Nitrogen 17 mg/dL Creatinine 1.5 mg/dL Estimated GFR (Cockcroft-Gault) 46.8 BUN/Creatinine Ratio 11 Glucose Level 78 mg/dL Calcium Level 9.4 mg/dL Gamma Glutamyl Transpeptidase 110 U/L Albumin/Globulin Ratio 1.1 PE: GEN: NAD LUNGS: CTAB HEART: RR ABD: NABS, S/ND/NT NEURO/PSYCH: A & O 3 A/P: Hyperbilirubinemia, AST ALT - fluctuating - no liver abnormality on CT or US - GGT elevated CHF, hypothyroidism, hypokalemia Anti-coagulated w/ Warfarin -- Monitoring labs for now. Justicifation of Admission Dx: Justifications for Admission: Justification of Admission Dx: Yes BETH DAVIES Sep 13, 2021 09:50
--- NOTE | 2021-09-13 10:14 | CARD ---
MR#: [id number] Date of Study: 09/12/2021 Ordering Physician: TOMASZ WING, Referring Physician: TOMASZ WING Tech: Sukhjinder Rowley [facility] APPROVED REPORT EXAM: Two-dimensional and M-mode echocardiogram with Doppler and color Doppler. Other Information Quality : LimitedHR: 76bpm Rhythm : NSRTechnically limited study due to body habitus and dementia INDICATION Hypertension/HCVD Echo Enhancing Agent Agent/Amount Used: Agitated Saline mL Surgery/Intervention ICD/Pacemaker: RISK FACTORS Hypertension Hyperlipidemia 2D DIMENSIONS Left Atrium(2D)7.1 (1.6-4.0cm)IVSd0.9 (0.7-1.1cm) Aortic Root(2D)3.6 (2.0-3.7cm)LVDd7.4 (3.9-5.9cm) LVOT Diameter2.3 (1.8-2.4cm)PWd0.8 (0.7-1.1cm) LA Epdqss009 (18-58mL)LVDs6.4 (2.5-4.0cm) FS (%) 13.0 %SV77.3 ml LVEF(%)26.9 (>50%) Aortic Valve AoV Peak Rony.75.8cm/sAoV VTI10.4cm AO Peak GR.2.3mmHgLVOT VTI 7.00cm AO Mean GR.2mmHg Mitral Valve MV E Klaoygbo60.9cm/sMV E Peak Gr.5mmHg MV DECEL [id number] A Xolbyfch23.9cm/s MV E Mean Gr.2mmHgE/A Ratio2.0 TDI Lateral E' P. V6.18cm/sMedial E' P. V5.21cm/s E/Lateral E'11.1E/Medial E'13.2 Pulmonary Valve PV Peak Oktzfdfz79.2cm/s Tricuspid Valve TR P. Rrndiggk857lt/sTR Peak Gr.27mmHg LEFT VENTRICLE The Left Ventricle is severely dilated. There is normal left ventricular wall thickness. Severe left ventricular systolic dysfunction. The ejection fraction is estimated at 20-25%. There is global hypok inesis of the left ventricle. No left ventricle thrombus noted on this study. There is no ventricular septal defect visualized. There is no left ventricular aneurysm. There is no mass noted in the left ventricle. RIGHT VENTRICLE The right ventricle is normal size. There is normal right ventricular wall thickness. The right ventr icular systolic function is mildly diminished. ATRIA The left atrium imoderately dilated. The right atrium is moderately dilated. The interatrial septum i s intact with no evidence for an atrial septal defect or patent foramen ovale as noted on 2-D or Dopp ler imaging. AORTIC VALVE The aortic valve is normal in structure and function. Doppler and Color Flow revealed no significant aortic regurgitation. There is no significant aortic valvular stenosis. There is no aortic valvular v egetation. MITRAL VALVE The mitral valve is thickened but opens well. There is no evidence of mitral valve prolapse. There is no mitral valve stenosis. Doppler and Color-flow revealed mild to moderate mitral regurgitation. TRICUSPID VALVE The tricuspid valve is normal in structure and function. Doppler and Color Flow revealed mild tricusp id regurgitation. There is no tricuspid valve prolapse or vegetation. There is no tricuspid valve kadeem nosis. PULMONIC VALVE The pulmonary valve is normal in structure and function. Doppler and Color Flow revealed no pulmonic valvular regurgitation. There is no pulmonic valvular stenosis. GREAT VESSELS The aortic root is normal in size. The ascending aorta is normal in size. The pulmonary artery is nor mal. The IVC is normal in size and collapses >50% with inspiration. PERICARDIAL EFFUSION There is no pleural effusion. There is no evidence of significant pericardial effusion. Critical Notification Critical Value: No <Conclusion> Severe left ventricular systolic dysfunction. The ejection fraction is estimated at 20-25%. Pacer/ICD lead noted RA/RV. Mild to moderate mitral regurgitation. Mild tricuspid regurgitation. There is no evidence of significant pericardial effusion. Signed by : Lewis Mora, Electronically Approved : 09/13/2021 10:13:48
[2021-09-13 11:00] VITALS: BP 105/84
--- NOTE | 2021-09-13 12:00 | PDOC ---
RAOUL BURGOS TOBACCO SHAKER 09/13/21 1159: CARDIO Progress Notes Date and Time Date of Service 09/13/21 Time of Evaluation 1200 Subjective Subjective: No Chest Pain, No shortness of breath, No Palpitations, No Dizziness Vitals Vitals Vital Signs Date Time Temp Pulse Resp B/P (MAP) Pulse Ox O2 Delivery O2 Flow Rate FiO2 09/13/21 08:46 82 115/84 09/13/21 08:00 Nasal Cannula 4.0 09/13/21 07:00 98.2 18 93 98.2 Weight Weight [ ] Input and Output Intake and Output Intake and Output 09/13/21 06:59 Intake Total 590 ml Output Total 2350 ml Balance -1760 ml Intake Oral 590 ml Output Urine Total 2350 ml Laboratory Labs Laboratory Tests Test 09/12/21 13:50 09/13/21 07:45 Prothrombin Time 19.0 SEC (11.7-14.0) 19.3 SEC (11.7-14.0) Prothromb Time International Ratio 1.7 (0.8-1.1) 1.7 (0.8-1.1) White Blood Count 4.8 x10^3/uL (4.0-11.0) Red Blood Count 4.23 x10^6/uL (4.30-5.70) Hemoglobin 14.7 g/dL (13.0-17.5) Hematocrit 45.6 % (39.0-53.0) Mean Corpuscular Volume 108 fL (79-100) Mean Corpuscular Hemoglobin 35 pg (25-35) Mean Corpuscular Hemoglobin Concent 32 g/dL (31-37) Red Cell Distribution Width 18.0 % (11.5-14.5) Platelet Count 116 x10^3/uL (140-400) Sodium Level 142 mmol/L (136-145) Potassium Level 2.9 mmol/L (3.5-5.1) Chloride Level 103 mmol/L (98-107) Carbon Dioxide Level 33 mmol/L (21-32) Anion Gap 6 (6-14) Blood Urea Nitrogen 17 mg/dL (8-26) Creatinine 1.5 mg/dL (0.7-1.3) Estimated GFR (Cockcroft-Gault) 46.8 BUN/Creatinine Ratio 11 (6-20) Glucose Level 78 mg/dL (70-99) Calcium Level 9.4 mg/dL (8.5-10.1) Total Bilirubin 3.3 mg/dL (0.2-1.0) Gamma Glutamyl Transpeptidase 110 U/L (10-85) Aspartate Amino Transf (AST/SGOT) 42 U/L (15-37) Alanine Aminotransferase (ALT/SGPT) 46 U/L (16-63) Alkaline Phosphatase 95 U/L (46-116) Total Protein 5.8 g/dL (6.4-8.2) Albumin 3.0 g/dL (3.4-5.0) Albumin/Globulin Ratio 1.1 (1.0-1.7) Microbiology Micro Microbiology 09/09/21 Blood Culture - Preliminary, Resulted NO GROWTH AFTER 3 DAYS Physical Exam HEENT: Neck Supple W Full Motion Chest: Symmetric LUNGS: Other (diminished bases) Heart: irregularly irregular (paced with underlying AFIB) Abdomen: Soft N/T Extremities: Other (trace pedal edema ) Neurology: alert, oriented, follow commands Assessment Assessment 1. Mild acute on chronic systolic heart failure: Most likely secondary to noncompliance with medications and salt restrictions. He is clinically better compensated. Echo 2019 showed EF 30 to 35%. Repeat echo with LVEF 20-25%. 2. Nonischemic cardiomyopathy s/p biventricular ICD implantation 15 years ago and more recent generator change, clinically stable 3. Atrial fibrillation, most probably permanent, rate controlled. Telemetry showed paced rhythm. 4. Acute on chronic renal insufficiency: improved 5. Mental status changes most probably metabolic encephalopathy. better 6. Hypertension: Controlled 7. Hypothyroidism: Continue levothyroxine 8. Hyperbilirubinemia: as per GI 9. Hypokalemia; replaced Recommendations Oral Lasix therapy Discussed 2Gm Na diet and 2000cc FR Also daily duy monitoring. Is to report if > 2-3# overnight or 5# gain in 1 week BB for rate control Warfarin for stroke prophylaxis Follow up with primary livestock farmers upon discharge. Justicifation of Admission Dx: Justifications for Admission: Justification of Admission Dx: Yes MARK DAVIS MD 09/13/21 6314: CARDIO Progress Notes Assessment Assessment Patient seen and examined. Agree with SOLID PROPELLANT PROCESSOR's assessment plan. Acute on chronic systolic heart failure better compensated AF rate controlled Continue current medical regimen follow-up with primary livestock farmers upon discharge RAOUL BURGOS APRN Sep 13, 2021 11:59 MARK DAVIS MD Sep 13, 2021 16:37
--- NOTE | 2021-09-13 12:13 | NUR ---
SS following for discharge planning. SS reviewed pt chart and discussed with pt RN. Pt is from home and is currently on room air. PT/OT ordered. PT recommended acute rehabilitation on 09/10/2021. SS met with pt and pt's family and discussed discharge planning and acute rehabilitation. Pt's family requesting that PT/OT evaluate pt today. Pt and family preference would be to return to home with possible outpatient services. Pt's RN notified. SS will continue to follow for discharge planning.
[2021-09-13] MEDS ORDERED: FOLI0.8T21 PO (14:02)
[2021-09-13] MEDS ORDERED: SPIR50TA PO (14:05)
--- NOTE | 2021-09-13 14:16 | SNU/HH DC ---
DISCHARGE WITH HOME HEALTH DISCHARGE INFORMATION: Discharge Date: Sep 13, 2021 Final Diagnosis: Generalized weakness Acute encephalopathy - likely hepatic Failure to thrive [place] Thrombocytopenia Elevated bilirubin Painless jaundice chronic systolic heart failure s/p biventricular ICD implantation and atrial fibrillation Problems Medical Problems: (1) Acute renal failure Status: Acute (2) Acute respiratory failure with hypoxia Status: Acute (3) Cholecystitis Status: Acute (4) Congestive heart failure Status: Acute (5) Hyperbilirubinemia Status: Acute (6) Jaundice Status: Acute (7) Lactic acidosis Status: Acute Condition on Discharge: Stable HOME HEALTH: Face to Face: I certify this patient is under my care and that I had a face to face encounter that meets the physician face to face encounter requirements with this patient on 09/13/21 Medical Complications: CHF RN For Eval/Treatment: Yes Physical Therapy For: Evalulation/Treatment Occupational Therapy For: Evaluation/Treatment Pt Meets Homebound Status: Unsteady balance w/ amb,, Unable to negotiate home POST DISCHARGE ORDERS: Activity Instructions for Disc: No restrictions, Activity as tolerated Weight Bearing Status after Di: No restrictions, As tolerated DIET AFTER DISCHARGE: Cardiac FOLLOW-UP: Follow up with: cardiology Additional Instructions: cbc, chem 7, mag in one week TREATMENT/EQUIPMENT ORDERS: Adaptive Equipment Issued: Front wheeled walker CERTIFICATION STATEMENT: Certification Statement: Certification Statement: Based on the above finding, I certify that this patient is confined to the home and needs intermittent fdc care, physical therapy and/or speech therapy, or continues to need occupational therapy.~ This patient is under my care, and I have initiated the establishment of the plan of care.~ This patient will be followed by myself or a community physician who will periodically review the plan of care. Home Meds Active Scripts Spironolactone (ALDACTONE) 50 Mg Tablet, 1 TAB PO DAILY for CHF, #30 TAB Prov:KULDEEP AGUILAR MD 09/13/21 Folic Acid/Vitamin B Comp W-C (LOWELL-ALEXANDER TABLET) 0.8 Mg Tablet, 1 TAB PO DAILY for vitamin deficiency, #100 TAB Prov:KULDEEP AGUILAR MD 09/13/21 Reported Medications Testosterone (TESTOSTERONE) 5 Gm Powder, 5 GM MC 09/14/14 Furosemide (FUROSEMIDE) 80 Mg Tablet, 80 MG PO DAILY, TAB 09/14/14 Levothyroxine Sodium (SYNTHROID) 200 Mcg Tablet, 200 MCG PO DAILYAC for THYROID SUPPLEMENT, #30 TAB 0 Refills 09/14/14 Carvedilol (CARVEDILOL) 25 Mg Tablet, 25 MG PO BIDWMEALS, TAB 09/14/14 Lisinopril (LISINOPRIL) 10 Mg Tablet, 10 MG PO DAILY for FOR HYPERTENSION, #30 TAB 0 Refills 09/14/14 Warfarin Sodium (WARFARIN SODIUM) 2.5 Mg Tablet, 2.5 MG PO DAILY, TAB 09/14/14 KULDEEP AGUILAR MD Sep 13, 2021 14:16
--- NOTE | 2021-09-13 14:25 | PDOC3 ---
Discharge Summary Visit Information Date of Admission: Sep 09, 2021 Date of Discharge: Sep 13, 2021 Final Diagnosis Generalized weakness Acute metabolic encephalopathy Failure to thrive [place], vbetter with lasix, hypokalemia Thrombocytopenia macrocytosis, prob EtOH abuse, THC use disorder Elevated bilirubin Painless jaundice chronic systolic heart failure s/p biventricular ICD implantation and atrial fibrillation 4.4, no stool 4 days, add miralax, OOB to chair, walk hallway, reconsult PT, DC plan soon, Bilirubin much better, home dose of synthroid is 200, change, to 200mcg I have resent request for records to his benefits analyst, , family is there, had a lot of concern and multiple questions about prior information given, Mult med problems noted, CT scan full of chronc problmes. I discussed concern for alcohol use, MCV large, bili was up and now better, and AST up on admit, alcohol abuse best fits these, THC abuse not discussed he is probably not compliant with meds Problems Medical Problems: (1) Acute renal failure Status: Acute (2) Acute respiratory failure with hypoxia Status: Acute (3) Cholecystitis Status: Acute (4) Congestive heart failure Status: Acute (5) Hyperbilirubinemia Status: Acute (6) Jaundice Status: Acute (7) Lactic acidosis Status: Acute Brief Hospital Course Allergies Allergies Coded Allergies Type Severity Reaction Last Updated Verified No Known Drug Allergies 09/14/14 No Vital Signs Vital Signs Date Time Temp Pulse Resp B/P (MAP) Pulse Ox O2 Delivery O2 Flow Rate FiO2 09/13/21 11:00 97.9 78 18 105/84 (91) 97 Room Air 97.9 09/13/21 08:00 4.0 Lab Results Laboratory Tests Test 09/12/21 11:15 09/12/21 13:50 09/13/21 07:45 Total Bilirubin 3.2 mg/dL (0.2-1.0) 3.3 mg/dL (0.2-1.0) Direct Bilirubin 1.7 mg/dL (0.0-0.2) Aspartate Amino Transf (AST/SGOT) 41 U/L (15-37) 42 U/L (15-37) Alanine Aminotransferase (ALT/SGPT) 44 U/L (16-63) 46 U/L (16-63) Alkaline Phosphatase 94 U/L (46-116) 95 U/L (46-116) Total Protein 6.1 g/dL (6.4-8.2) 5.8 g/dL (6.4-8.2) Albumin 3.0 g/dL (3.4-5.0) 3.0 g/dL (3.4-5.0) Vitamin B12 Level 1403 pg/mL (247-911) Prothrombin Time 19.0 SEC (11.7-14.0) 19.3 SEC (11.7-14.0) Prothromb Time International Ratio 1.7 (0.8-1.1) 1.7 (0.8-1.1) White Blood Count 4.8 x10^3/uL (4.0-11.0) Red Blood Count 4.23 x10^6/uL (4.30-5.70) Hemoglobin 14.7 g/dL (13.0-17.5) Hematocrit 45.6 % (39.0-53.0) Mean Corpuscular Volume 108 fL (79-100) Mean Corpuscular Hemoglobin 35 pg (25-35) Mean Corpuscular Hemoglobin Concent 32 g/dL (31-37) Red Cell Distribution Width 18.0 % (11.5-14.5) Platelet Count 116 x10^3/uL (140-400) Sodium Level 142 mmol/L (136-145) Potassium Level 2.9 mmol/L (3.5-5.1) Chloride Level 103 mmol/L (98-107) Carbon Dioxide Level 33 mmol/L (21-32) Anion Gap 6 (6-14) Blood Urea Nitrogen 17 mg/dL (8-26) Creatinine 1.5 mg/dL (0.7-1.3) Estimated GFR (Cockcroft-Gault) 46.8 BUN/Creatinine Ratio 11 (6-20) Glucose Level 78 mg/dL (70-99) Calcium Level 9.4 mg/dL (8.5-10.1) Magnesium Level 2.1 mg/dL (1.8-2.4) Gamma Glutamyl Transpeptidase 110 U/L (10-85) Albumin/Globulin Ratio 1.1 (1.0-1.7) Laboratory Tests Test 09/13/21 07:45 White Blood Count 4.8 x10^3/uL (4.0-11.0) Red Blood Count 4.23 x10^6/uL (4.30-5.70) Hemoglobin 14.7 g/dL (13.0-17.5) Hematocrit 45.6 % (39.0-53.0) Mean Corpuscular Volume 108 fL (79-100) Mean Corpuscular Hemoglobin 35 pg (25-35) Mean Corpuscular Hemoglobin Concent 32 g/dL (31-37) Red Cell Distribution Width 18.0 % (11.5-14.5) Platelet Count 116 x10^3/uL (140-400) Prothrombin Time 19.3 SEC (11.7-14.0) Prothromb Time International Ratio 1.7 (0.8-1.1) Sodium Level 142 mmol/L (136-145) Potassium Level 2.9 mmol/L (3.5-5.1) Chloride Level 103 mmol/L (98-107) Carbon Dioxide Level 33 mmol/L (21-32) Anion Gap 6 (6-14) Blood Urea Nitrogen 17 mg/dL (8-26) Creatinine 1.5 mg/dL (0.7-1.3) Estimated GFR (Cockcroft-Gault) 46.8 BUN/Creatinine Ratio 11 (6-20) Glucose Level 78 mg/dL (70-99) Calcium Level 9.4 mg/dL (8.5-10.1) Magnesium Level 2.1 mg/dL (1.8-2.4) Total Bilirubin 3.3 mg/dL (0.2-1.0) Gamma Glutamyl Transpeptidase 110 U/L (10-85) Aspartate Amino Transf (AST/SGOT) 42 U/L (15-37) Alanine Aminotransferase (ALT/SGPT) 46 U/L (16-63) Alkaline Phosphatase 95 U/L (46-116) Total Protein 5.8 g/dL (6.4-8.2) Albumin 3.0 g/dL (3.4-5.0) Albumin/Globulin Ratio 1.1 (1.0-1.7) Brief Hospital Course Mr. Baca is a 66 old year-old man with past medical history A. fib on warfarin, CHF, depression, gout, padmit from ER for generalized weakness and confusion over days. Family had concerns noncompliant with his diet, but has been compliant with his medications to his knowledge. He seemed confused, may have missed meds, Labs on admission showed MCV 107, BUN 31, creatinine 2.0, CBG 122, AST 47, ALT 52, alkaline phosphatase 121. Urine toxicology was positive for cannabis. Urinalysis negative for any signs of infection. CT abdomen no acute, mult chroinc problems, thick gallbladder, thick bladder calculus identified in the left kidney with largest measuring 9 mm left kidney, better over days diuresed and renal fxn improved, Discharge Information Condition at Discharge: Improved Follow Up: Weeks Disposition/Orders: D/C to Home w/ HH Scheduled Carvedilol (Carvedilol) 25 Mg Tablet, 25 MG PO BIDWMEALS, (Reported) Entered as Reported by: DAVID MACDONALD on 09/14/14830 Last Action: Converted on 09/09/211818 by TOMASZ WING MD Folic Acid/Vitamin B Comp W-C (Brandie-Alva Tablet) 0.8 Mg Tablet, 1 TAB PO DAILY for vitamin deficiency, #100 Prescribed by: KULDEEP AGUILAR on 09/13/21 1402 Furosemide (Furosemide) 80 Mg Tablet, 80 MG PO DAILY, (Reported) Entered as Reported by: DAVID MACDONALD on 09/14/14830 Last Action: Continued on 09/09/211818 by TOMASZ WING MD Levothyroxine Sodium (Synthroid) 200 Mcg Tablet, 200 MCG PO DAILYAC for THYROID SUPPLEMENT, #30 Ref 0 (Reported) Entered as Reported by: DAVID MACDONALD on 09/14/14830 Last Action: Converted on 09/09/211818 by TOMASZ WING MD Lisinopril (Lisinopril) 10 Mg Tablet, 10 MG PO DAILY for FOR HYPERTENSION, #30 Ref 0 (Reported) Entered as Reported by: DAVID MACDONALD on 09/14/14830 Last Action: Continued on 09/09/211818 by TOMASZ WING MD Spironolactone (Aldactone) 50 Mg Tablet, 1 TAB PO DAILY for CHF, #30 Prescribed by: KULDEEP AGUILAR on 09/13/21 1405 Warfarin Sodium (Warfarin Sodium) 2.5 Mg Tablet, 2.5 MG PO DAILY, (Reported) Entered as Reported by: DAVID MACDONALD on 09/14/14830 Last Action: Continued on 09/09/211818 by TOMASZ WING MD Miscellaneous Medications Testosterone (Testosterone) 5 Gm Powder, 5 GM MC, (Reported) Entered as Reported by: DAVID MACDONALD on 09/14/14830 Patient Instructions Patient Instructions face to face x2 I got him out of bed myself, can get to bathroom independent , 39 minutes total time Justicifation of Admission Dx: Justifications for Admission: Justification of Admission Dx: Yes KULDEEP AGUILAR MD Sep 13, 2021 14:25
--- NOTE | 2021-09-13 14:48 | NUR ---
Discharge Note: TONIA CAMP [address] Discharge instructions and discharge home medications reviewed with Patient and family and a copy given. All questions have been answered and understanding verbalized. The following instructions and handouts were given: information about diet, activity, walker, follow up appointments, medications. Discontinued lines and drains: IV lines in left AC and right AC removed, catheter tips intact. Patient discharged to home with home health, wheelchair used for mobility to discharge vehicle.
[2021-09-13] MEDS ORDERED: WARFARIN 4 MG TABLET. PO ONE (16:00)
== END 2021-09-13 14:59 | disposition home health service (06) | DRG 291 ==
LOC: ER 12:23 → 6 SOUTH 14:30
PROVIDERS: ADMIT Family Medicine; ATTEND Family Medicine
DX: I13.0 Hypertensive heart and chronic kidney disease with heart failure and stage 1 through stage 4 chronic kidney disease, or unspecified chronic kidney disease (principal); G93.41 Metabolic encephalopathy; I50.23 Acute on chronic systolic (congestive) heart failure; J96.01 Acute respiratory failure with hypoxia; K81.0 Acute cholecystitis; N17.9 Acute kidney failure, unspecified; I42.8 Other cardiomyopathies; D69.6 Thrombocytopenia, unspecified; D75.89 Other specified diseases of blood and blood-forming organs; E03.9 Hypothyroidism, unspecified; E11.22 Type 2 diabetes mellitus with diabetic chronic kidney disease; E87.6 Hypokalemia; F10.10 Alcohol abuse, uncomplicated; F12.10 Cannabis abuse, uncomplicated; I48.91 Unspecified atrial fibrillation; I70.0 Atherosclerosis of aorta; J44.9 Chronic obstructive pulmonary disease, unspecified; K82.8 Other specified diseases of gallbladder; N18.9 Chronic kidney disease, unspecified; N21.0 Calculus in bladder; N28.1 Cyst of kidney, acquired; R62.7 Adult failure to thrive; Z79.01 Long term (current) use of anticoagulants; Z85.71 Personal history of Hodgkin lymphoma; Z87.891 Personal history of nicotine dependence; Z90.81 Acquired absence of spleen; Z91.11 Patient's noncompliance with dietary regimen; Z91.14 Patient's other noncompliance with medication regimen; F32.A Depression, unspecified; M10.9 Gout, unspecified
CPT/HCPCS: 36415; 36600; 70450; 71045; 71250; 74176; 76700; 80053; 80076; 80307; 81001; 82140; 82550; 82607; 82805; 82977; 83605; 83690; 83735; 83880; 84100; 84443; 84484; 85025; 85027; 85610; 85730; 87040; 93306; 96361; 96374; G0480; J1940; J2543; J7040; 97116-GP; 97530-GP; 97535-GO; 99285-25; C8929; G0378